=== PATIENT | female | born 1945 | race Caucasian/White ===

== ENCOUNTER 2018-07-09 21:29 | Emergency (ER) | payer OTHER ==
[~2018-07-09] VITALS: Ht 160 cm; Wt 83.9 kg
[~2018-07-09 21:29] MED LIST: ADULT LOW DOSE81 MG PO; ADVAIR 250-501 EACH; ADVAIR 250-501 EACH INH; ALBUTEROL2.5 MG/3 M INH; ALLOPURINOL 30300 M2 PO; AMITRIPTYLINE H25 M2 PO; AMITRIPTYLINE H25 M3 PO; ASPIRIN81 M2 PO; BUTALB-ACETAMI1 EAC1 PO; BUTALB-APAP-CA1 EACH PO; COLACE100 MG PO; CRESTOR20 MG PO; CRESTOR40 MG PO; DUONEB 2.5-0.5 M3 ML; ESGIC PLUS; FAMOTIDINE 10 M10 MG PO; FENOFIBRATE160 MG PO; FENTANYL PA25 MCG/HR TP; FIORINAL 50-321 EACH PO; GLUCOPHAGE1000 MG PO; GLUCOPHAGE500 MG PO; GLUCOTROL5 MG PO; HAIR SKIN NAIL1 EACH PO; HAIR, SKIN & N1 EAC1 PO; IMDUR 60 MG TAB60 M1 PO; IMDUR120 MG PO; INDOMETHACIN 5050 M1 PO; K-DUR 20 MEQ T20 MEQ PO; LASIX 40 MG TAB40 M1 PO; LEVOTHYROXINE0.05 MG PO; LISINOPRIL10 MG PO; LISINOPRIL5 MG PO; LOPRESSOR25 PO; LOPRESSOR50 PO; LORTAB 5-500 T1 EAC1 PO; METAXALONE800 MG PO; METFORMIN HCL500 MG PO; MULTIVITAMINS PO; NAPROSYN500 MG PO; NITROSTAT0.4 MG SUBLING; OCULAR NUTRITION PO; OMEPRAZOLE20 M2 PO; PEPCID20 MG PO; PERCOCET PO; PLAVIX 75 MG TA75 MG PO; POTASSIUM20 PO; PROAIR HFA8.5 GM INH; RANEXA500 MG PO; ROBAXIN 750 MG750 M1 PO; ROBAXIN500 MG PO; ROXICET 5-3251 EACH PO; SPIRIVA INH; TIROSINT75 MCG PO; TOPROL XL25 MG PO; TOPROL XL50 MG PO; VENTOLIN HFA 1818 GM INH; VENTOLIN17 GM; VICODIN 5-5001 EACH PO; VITAMIN B-121000 MCG PO; VITAMIN D-32000 UNIT PO; VITAMIN D1000 UNI1 PO; [UNRECOGNIZED DRUG - OTHER] PO
[2018-07-09 22:32] LABS: ABSOLUTE BASOPHILS 0.1 thou/uL (0.0-0.2); ABSOLUTE EOSINOPHILS 0.2 thou/uL (0.0-0.7); ABSOLUTE LYMPHOCYTES 1.6 thou/uL (0.8-5.3); ABSOLUTE MONOCYTES 0.6 thou/uL (0.0-1.2); ABSOLUTE NEUTROPHILS 3.5 thou/uL (1.6-8.1); BASOPHILS 1.3 %; EOSINOPHILS 3.2 %; HEMATOCRIT 30.9 % (37.0-47.0); HEMOGLOBIN 9.9 gm/dL (12.0-15.0); LYMPHOCYTES 26.5 %; MCH 27.9 pg (26.0-34.0); MONOCYTES 9.3 %; MPV 9.8 fl. (7.2-11.1); NUCLEATED RBCS 0 /100WBC; PLATELET COUNT* 188 thou/uL (150-400); POLYS 59.7 %; RBC 3.55 mil/uL (4.20-5.00); RDW-CV 18.4 % (10.5-14.5); WBC 5.9 thou/uL (4.0-11.0)
[2018-07-09 22:36] LABS: BE -1.7 mmol/L (-2 to +3); PCO2 33.1 mmHg (35.0-45.0); PO2 92.5 mmHg (75.0-100.0); pH 7.438 (7.340-7.450)
[2018-07-09] MEDS ORDERED: FLEXERIL (22:39)
[2018-07-09] MEDS ORDERED: LOPRESSOR25 (22:40)
[2018-07-09] MEDS ORDERED: NORCO 5-325 TA1 EACH (22:49)
[2018-07-09 22:52] LABS: APTT 23.7 Seconds (25.0-31.3); PROTIME 10.3 Seconds (9.20-11.50)
[2018-07-09 22:54] LABS: ALBUMIN 3.4 g/dL (3.4-5.0); ALKALINE PHOSPHATASE 49 U/L (46-116); ANION GAP 9 mmol/L (7-16); BUN 32 mg/dL (7-18); CALCIUM 9.4 mg/dL (8.5-10.1); CHLORIDE 103 mmol/L (98-107); CO2 28 mmol/L (21-32); CREATININE 2.3 mg/dL (0.6-1.3); GLUCOSE 186 mg/dL (70-99); POTASSIUM 3.9 mmol/L (3.5-5.1); SGOT 16 U/L (15-37); SGPT 17 U/L (30-65); SODIUM 140 mmol/L (136-145); TOTAL BILIRUBIN 0.2 mg/dL (<0.1-1.0); TOTAL PROTEIN 6.9 g/dL (6.4-8.2); TROPONIN-I LEVEL <0.06 ng/mL (<0.06)
[2018-07-10 00:06] LABS: URINE BILIRUBIN NEGATIVE (Negative); URINE BLOOD NEGATIVE (Negative); URINE CLARITY CLEAR; URINE COLOR YELLOW; URINE GLUCOSE-RANDOM NEGATIVE (Negative); URINE KETONES NEGATIVE (Negative); URINE LEUKOCYTES-REFLEX 1+ (Negative); URINE NITRITE-REFLEX NEGATIVE (Negative); URINE PROTEIN NEGATIVE (Negative); URINE SPECIFIC GRAVITY 1.015 (1.005-1.030); URINE UROBILINOGEN 0.2 E.U./dl (0.2-1.0)
[2018-07-10 00:24] LABS: CASTS None Seen /LPF (None Seen); CRYSTALS None Seen /LPF (None Seen); MUCUS 0-3 Light strn/LPF (None Seen); SQUAMOUS 0-3 Few /LPF (0-3); URINE RBC 0-2 Rare /HPF (0-2); URINE WBC-REFLEX 6-15 Few /HPF (0-5); WBC CLUMPS Few (None Seen)
[2018-07-10 03:29] LABS: CALCIUM 8.3 mg/dL (8.5-10.1); CREATININE 2.1 mg/dL (0.6-1.3); POTASSIUM 3.8 mmol/L (3.5-5.1)
[2018-07-10] MEDS ORDERED: ZOFRAN ODT4 MG PO (03:38)
[2018-07-10] MEDS ORDERED: CIPROFLOXACIN500 M1 PO (03:38)
[2018-07-10 03:56] VITALS: BP 143/50
--- NOTE | 2018-07-10 15:07 | EKG ---
[place] [address] ELECTROCARDIOGRAM REPORT Name: SHAGGY REINOSO Room: [facility]#: [id number] Admission: 07/09/18 Attend Phys: Discharge: 07/10/18 Date of : 43 Report #: [id number] THIS REPORT FOR: //name// [facility] ED Test Date: 2018-07-09 Test Time: 22:15:24 Pat Name: SHAGGY REINOSO Department: Room: Gender: F Seo Analyst: Criss MURRELL : 1945 Requested By: Regina Arriola Order Number: [id number] MD: Lucas Erwin Measurements Intervals [place] Rate: 71 P: 3 MS: 227 QRS: 50 QRSD: 108 T: 240 QT: 389 QTc: 423 Interpretive Statements Junctional rhythm Nonspecific repol abnormality, diffuse leads Compared to ECG 04/13/2015 16:34:20 Atrial premature complex(es) no longer present Right-axis deviation no longer present Q waves no longer present Electronically Signed On 07-10-2018 15:07:18 CDT by Lucas Erwin [email or web address] <ELECTRONICALLY SIGNED> By: Lucas Erwin MD, FACC 07/10/18 1507 2215 2215 Lucas Erwin MD, [facility] /EPI
== END 2018-07-10 03:56 | disposition home or self-care (01) ==
LOC: M.ERS 21:29
PROVIDERS: Personal Emergency Response Attendant
DX: N39.0 Urinary tract infection, site not specified (principal); R11.0 Nausea; J44.9 Chronic obstructive pulmonary disease, unspecified; K21.9 Gastro-esophageal reflux disease without esophagitis; E11.9 Type 2 diabetes mellitus without complications; Z95.5 Presence of coronary angioplasty implant and graft; Z86.2 Personal history of diseases of the blood and blood-forming organs and certain disorders involving the immune mechanism; Z91.041 Radiographic dye allergy status; Z88.0 Allergy status to penicillin; Z88.7 Allergy status to serum and vaccine; Z95.1 Presence of aortocoronary bypass graft; Z90.710 Acquired absence of both cervix and uterus; Z96.659 Presence of unspecified artificial knee joint; Z88.8 Allergy status to other drugs, medicaments and biological substances

== ENCOUNTER → 2018-11-29 | Outpatient (CLI) | payer OTHER ==
[~2018-11-29] MED LIST changes: +CIPROFLOXACIN500 M1 PO; +FLEXERIL; +LOPRESSOR25; +NORCO 5-325 TA1 EACH; +ZOFRAN ODT4 MG PO
--- NOTE | 2018-11-29 13:22 | 2DMMODE ---
[place] [address] 2 D/M-MODE ECHOCARDIOGRAM Name: SHAGGY REINOSO Room: [facility]#: [id number] Admission: 11/29/18 Attend Phys: Gabi Keating, Discharge: Date of : 43 Date of Service: 11/29/18 1322 Report #: [id number] THIS REPORT FOR: //name// APPROVED REPORT Study performed: 11/29/2018 08:20:15 EXAM: Comprehensive 2D, Doppler, and color-flow Echocardiogram Patient Location: Out-Patient BSA: 1.88 HR: 70 bpm BP: 126/68 mmHg Other Information Study Quality: Good Indications Cardiomyopathy 2D Dimensions IVSd: 12.07 (7-11mm) LVOT Diam: 20.73 (18-24mm) LVDd: 49.78 mm PWd: 8.59 (7-11mm) Ascending Ao: 30.99 (22-36mm) LVDs: 35.71 (25-40mm) Aortic Root: 25.65 mm Volumes Left Atrial Volume (Systole) LA ESV Index: 17.70 mL/m2 Aortic Valve AoV Peak Hever.: 1.36 m/s AO Peak Gr.: 7.36 mmHg LVOT Max P.70 mmHg AO Mean Gr.: 3.82 mmHg LVOT Mean P.64 mmHg LVOT Max V: 0.96 m/s AO V2 VTI: 26.45 cm LVOT Mean V: 0.58 m/s SEFERINO (VTI): 2.50 cm2 LVOT V1 VTI: 19.58 cm Mitral Valve E/A Ratio: 0.58 MV Decel. Time: 321.15 ms MV E Max Hever.: 0.47 m/s MV PHT: 93.13 ms MVA (PHT): 2.36 [place] [address] 2 D/M-MODE ECHOCARDIOGRAM Name: SHAGGY REINOSO Room: [facility]#: [id number] Admission: 11/29/18 Attend Phys: Gabi Keating, Discharge: Date of : 43 Date of Service: 11/29/18 1322 Report #: [id number] TDI E/Lateral E': 6.71 E/Medial E': 5.88 Medial E' Hever.: 0.08 m/s Lateral E' Hever.: 0.07 m/s Pulmonary Valve PV Peak Hever.: 1.26 m/s PV Peak Gr.: 6.34 mmHg Tricuspid Valve RAP Estimate: 5.00 mmHg TR Peak Gr.: 20.90 mmHg RVSP: 25.90 mmHg PA Pressure: 25.90 mmHg Left Ventricle The left ventricle is normal size. There is normal LV segmental wall motion. There is normal left ventricular wall thickness. Left ventricular systolic function is normal. LVEF is 50-55%. Grade I - abnormal relaxation pattern. Right Ventricle The right ventricle is normal size. The right ventricular systolic function is normal. Atria The left atrium size is normal. The right atrium size is normal. Aortic Valve The aortic valve is normal in structure. No aortic regurgitation is present. There is no aortic valvular stenosis. Mitral Valve The mitral valve is normal in structure. There is no mitral valve regurgitation noted. No evidence of mitral valve stenosis. Tricuspid Valve The tricuspid valve is normal in structure. There is no tricuspid valve regurgitation noted. Pulmonic Valve The pulmonary valve is normal in structure. Mild pulmonic regurgitation. Great Vessels The aortic root is normal in size. IVC [place] [address] 2 D/M-MODE ECHOCARDIOGRAM Name: SHAGGY REINOSO Room: [facility]#: [id number] Admission: 11/29/18 Attend Phys: Gabi Keating, Discharge: Date of : 43 Date of Service: 11/29/18 1322 Report #: [id number] collapses >50% with inspiration. Pericardium There is no pericardial effusion. <Conclusion> The left ventricle is normal size. There is normal left ventricular wall thickness. Left ventricular systolic function is normal. LVEF is 50-55%. Grade I - abnormal relaxation pattern. Mild pulmonic regurgitation. IVC is normal in size and collapses >50% with inspiration. <ELECTRONICALLY SIGNED> By: Lucas Erwin MD, FACC 11/29/18 132 21 21 Lucas Erwin MD, FACC /INF
== END ==
LOC: M.CRD 08:00
DX: I37.1 Nonrheumatic pulmonary valve insufficiency (principal); I25.118 Atherosclerotic heart disease of native coronary artery with other forms of angina pectoris; I25.5 Ischemic cardiomyopathy; Z88.0 Allergy status to penicillin; Z88.8 Allergy status to other drugs, medicaments and biological substances; Z88.7 Allergy status to serum and vaccine

== ENCOUNTER 2019-03-28 00:28 | Inpatient (IN) | payer OTHER ==
[~2019-03-28] VITALS: Ht 160 cm; Wt 89.7 kg
[2019-03-28] VITALS (7 sets, daily range): BP systolic 106–141; BP diastolic 56–74
[~2019-03-28 00:28] MED LIST changes: -FLEXERIL; +FLEXERIL PO; +HYDROCODON-ACE1 EAC7 PO; -NORCO 5-325 TA1 EACH
[2019-03-28 03:09] LABS: HEMATOCRIT 28.6 % (37.0-47.0); HEMOGLOBIN 9.5 gm/dL (12.0-15.0); MCH 30.6 pg (26.0-34.0); MCHC 33.3 g/dL (28.0-37.0); MPV 9.2 fl. (7.2-11.1); RBC 3.11 mil/uL (4.20-5.00); RDW-CV 16.7 % (10.5-14.5); WBC 7.4 thou/uL (4.0-11.0)
[2019-03-28 03:23] LABS: CALCIUM 8.5 mg/dL (8.5-10.1); CREATININE 2.1 mg/dL (0.6-1.3); POTASSIUM 3.9 mmol/L (3.5-5.1)
[2019-03-28 03:26] LABS: PROTIME 10.4 Seconds (9.20-11.50)
[2019-03-28 03:27] LABS: ALBUMIN 3.1 g/dL (3.4-5.0); MAGNESIUM 2.1 mg/dL (1.8-2.4); TOTAL BILIRUBIN 0.1 mg/dL (<0.1-1.0); TOTAL PROTEIN 6.2 g/dL (6.4-8.2)
--- NOTE | 2019-03-28 04:44 | NUR ---
PT ARRIVED TO FLOOR AT 0115 DIRECT ADMIT FOR CHEST PAIN. ASSESSMENTS COMPLETED AT BEDSIDE WITH PT AND DAUGHTER. NO PAIN NOTED AT THIS TIME. MAINTAINING O2 SATS ON 2L NC. CURRENTLY ASLEEP IN BED DAUGHTER AT BEDSIDE. BED ALRAM ON AND CALL LIGHT WITHIN REACH.
[2019-03-28 05:52] LABS: CHOLESTEROL 151 mg/dL (<200); HDL CHOLESTEROL 34 mg/dL (>40); LDL CHOLESTEROL 51 mg/dL (<100); TC:HDL 4.4 Ratio (Not establshd); TRIGLYCERIDE 333 mg/dL (<150); VLDL 67 mg/dL (<40)
[2019-03-28 05:54] LABS: SERUM ASSESSMENT Moderate Lipemia
--- NOTE | 2019-03-28 09:00 | NUR ---
INITAL ASSESSMENT COMPLETED. VSS. TRACING SR ON MONITOR. REFER TO COMPUTER CHARTING FOR FURTHER DETAILS. NO NEW CONCERNS AT THIS TIME. HOURLY ROUNDING AND FALL PRECAUTIONS IN PLACE FOR PT SAFETY. CLWR.
--- NOTE | 2019-03-28 09:56 | EKG ---
[place] [address] ELECTROCARDIOGRAM REPORT Name: SHAGGY REINOSO Room: [address] ADM IN M.R.#: [id number] Admission: 03/28/19 Attend Phys: Pamela Rowell Discharge: Date of : 43 Report #: [id number] THIS REPORT FOR: //name// [facility] Test Date: 2019-03-28 Test Time: 01:22:54 Pat Name: SHAGGY REINOSO Department: Room: [address] Gender: F Health Information Technician: [id number] : 1945 Requested By: Pamela Pascual Order Number: [id number] Reading MD: Jacobo Tom Measurements Intervals [place] Rate: 76 P: 218 ND: 346 QRS: 74 QRSD: 114 T: -88 QT: 400 QTc: 450 Interpretive Statements Sinus or ectopic atrial rhythm Prolonged ND interval Borderline intraventricular conduction delay Repol abnrm, severe global ischemia (LM/MVD) Compared to ECG 07/09/2018 22:15:24 First degree AV block now present Possible ischemia now present Electronically Signed On 03-28-2019 9:56:23 VOICER by Jacobo Tom [email or web address] <ELECTRONICALLY SIGNED> By: Jacobo Tom MD, FACC 03/28/19 0956 1 0122 Jacobo Tom MD, FAC /EPI
--- NOTE | 2019-03-28 13:32 | 2DMMODE ---
[place] [address] 2 D/M-MODE ECHOCARDIOGRAM Name: SHAGGY REINOSO Room: [address] ADM IN [facility]#: [id number] Admission: 03/28/19 Attend Phys: Pamela welch Sa Discharge: Date of : 43 Date of Service: 03/28/19 1331 Report #: [id number] THIS REPORT FOR: //name// APPROVED REPORT Study performed: 03/28/2019 11:30:04 EXAM: Comprehensive 2D, Doppler, and color-flow Echocardiogram Patient Location: In-Patient Room #: [facility] Status: routine BSA: 1.89 HR: 67 bpm BP: 138/56 mmHg Rhythm: NSR Other Information Study Quality: Good Indications Acute VT CAD Chest Pain 2D Dimensions IVSd: 13.58 (7-11mm) LVOT Diam: 20.53 (18-24mm) LVDd: 56.05 mm PWd: 13.60 (7-11mm) Ascending Ao: 34.77 (22-36mm) LVDs: 37.05 (25-40mm) Aortic Root: 35.93 mm Volumes Left Atrial Volume (Systole) LA ESV Index: 34.90 mL/m2 Aortic Valve AoV Peak Hever.: 1.33 m/s AO Peak Gr.: 7.10 mmHg LVOT Max P.52 mmHg AO Mean Gr.: 3.74 mmHg LVOT Mean P.13 mmHg LVOT Max V: 1.06 m/s AO V2 VTI: 28.00 cm LVOT Mean V: 0.66 m/s SEFERINO (VTI): 2.76 cm2 LVOT V1 VTI: 23.38 cm Mitral Valve E/A Ratio: 0.76 [place] [address] 2 D/M-MODE ECHOCARDIOGRAM Name: SHAGGY REINOSO Room: [address] IN M.R.#: [id number] Admission: 03/28/19 Attend Phys: Pamela welch Sa Discharge: Date of : 43 Date of Service: 03/28/19 1331 Report #: [id number] MV Decel. Time: 198.91 ms MV E Max Hever.: 0.76 m/s MV PHT: 57.68 ms MVA (PHT): 3.81 cm2 TDI E/Lateral E': 6.91 E/Medial E': 7.60 Medial E' Hever.: 0.10 m/s Lateral E' Hever.: 0.11 m/s Pulmonary Valve PV Peak Hever.: 1.45 m/s PV Peak Gr.: 8.46 mmHg Left Ventricle The left ventricle is normal size. There is normal LV segmental wall motion. Mild concentric left ventricular hypertrophy. Left ventricular systolic function is normal. The left ventricular ejection fraction is within the normal range. LVEF is 55-60%. Grade I - abnormal relaxation pattern. Right Ventricle The right ventricle is normal size. The right ventricular systolic function is normal. Atria Left atrium is mildly dilated. The right atrium size is normal. Aortic Valve Mild aortic valve sclerosis. Trace aortic regurgitation. There is no aortic valvular stenosis. Mitral Valve The mitral valve is normal in structure. Trace mitral regurgitation. No evidence of mitral valve stenosis. Tricuspid Valve The tricuspid valve is normal in structure. Trace tricuspid regurgitation. Pulmonic Valve The pulmonary valve is normal in structure. Mild pulmonic regurgitation. Great Vessels The aortic root is normal in size. IVC [place] [address] 2 D/M-MODE ECHOCARDIOGRAM Name: SHAGGY REINOSO Room: [address]#: [id number] Admission: 03/28/19 Attend Phys: Pamela welch Sa Discharge: Date of : 43 Date of Service: 03/28/19 1331 Report #: [id number] collapses >50% with inspiration. Pericardium There is no pericardial effusion. <Conclusion> LVEF is 55-60%. Mild concentric left ventricular hypertrophy. Left atrium is mildly dilated. Mild aortic valve sclerosis. <ELECTRONICALLY SIGNED> By: Jacobo Tom MD, FAC 03/28/191330 30 30 Jacobo Tom MD, FAC /INF
--- NOTE | 2019-03-28 15:17 | NUR ---
Pt is A&O. Resides at home alone. Independent. Family provides transportation. Dtr lives across the street and is available to assist as needed. Pt has a cane, walker wc and neb at home. Hx of HH in 2013 post knee replacement surgery. No hx of SNF. Pt states that she is scheduled to have a cath tomorrow morning. Pt's goal is to return home at ri. No needs anticipated.
[2019-03-28 17:07] LABS: AMP/METHAMP Negative (Negative); BARBITURATES Negative (Negative); BENZODIAZEPINES Negative (Negative); COCAINE Negative (Negative); METHADONE Negative (Negative); OPIATES POSITIVE (Negative); PCP Negative (Negative); THC Negative (Negative)
[2019-03-29] VITALS (15 sets, daily range): BP systolic 122–151; BP diastolic 48–69
--- NOTE | 2019-03-29 05:23 | NUR ---
ASSUMED PT CARE AT APPROX 1930. PT IS AWAKE AND ORIENTED X4. VSS ON ROOM AIR. HEAD INSULATION BOARD SAW OPERATOR IN PLACE TRACING SR 1D AVB. PT DENIES CHEST PAIN/DISCOMFORT. ASSESSMENT DONE AND CHARTED. PT IS ADVISED TO HAVE NOTHING PER O[place] AFTER MIDNIGHT FOR POSS. PCI IN AM. HEPARIN DRIP PER PROTOCOL. HIGH FALL PRECAUTIONS IN PLACE. CALL LIGHT WITHIN REACH. HOURLY ROUNDING DONE FOR PT SAFETY.
[2019-03-29 07:36] LABS: HEMATOCRIT 26.6 % (37.0-47.0); MCH 31.3 pg (26.0-34.0); MCHC 33.8 g/dL (28.0-37.0); MCV 92.6 fL (80.0-100.0); MPV 9.8 fl. (7.2-11.1); RBC 2.88 mil/uL (4.20-5.00); RDW-CV 16.5 % (10.5-14.5); WBC 7.6 thou/uL (4.0-11.0)
[2019-03-29 07:45] LABS: CALCIUM 8.2 mg/dL (8.5-10.1); CREATININE 1.8 mg/dL (0.6-1.3); MAGNESIUM 2.1 mg/dL (1.8-2.4); POTASSIUM 4.4 mmol/L (3.5-5.1)
--- NOTE | 2019-03-29 11:54 | CARD ---
[address] [address] CARDIAC CATH REPORT Name: AMY REINOSOE GAVINO Room: [address] IN ..#: [id number] Admission: 03/28/19 Attend Phys: Pamela welch [place] Discharge: Date of : 43 Report #: [id number] THIS REPORT FOR: //name// APPROVED REPORT Study performed: 03/29/2019 08:13:59 Patient Details Patient Status: In-Patient Room #: The patient is a 73 year-old female Event Personnel Jacobo Tom Cargo Broker, Chika Reece RN Administrative Professional, Olena Meza RN Administrative Professional, Maru Noguera RTR Scrub, Hoang Flynn RTR Scrub, Praveena Ly RTR Monitor Procedures Performed Art Access - R femoral artery, Left Heart Cath Coronaries, Bypass Grafts LHCCORCABG, BMS Place w/wo Plasty Single DIAG BMS SINGLE, Supravalvular Aortography, Hemostasis w/ Angioseal Indication Unstable angina Risk Factors Hypercholesterolemia, Hypertension, Diabetes Previous Procedures/Diagnoses Previous CABGPrevious PCI Admission/Lab Medications/Medications given during procedure Heparin Unfract., Solumedrol IV 125 mg, Benadryl IV 50 mg, Heparin IV 4000 units total Procedure Narrative The patient was brought electively to the Cardiac Catheterization Laboratory and was prepped and draped in a sterile manner. The right femoral groin area was infiltrated with 2% Lidocaine subcutaneous anesthesia. A 6fr Ultimum Sheath sheath was inserted into the right femoral artery. Coronary angiography was performed using coronary diagnostic catheters. The right coronary system was accessed and visualized with a 6F JR4 catheter. The left coronary system was accessed and visualized with a 6F JL4 catheter. The left ventricle was accessed and visualized with a 6F JR4 [place] [address] CARDIAC CATH REPORT Name: SHAGGY REINOSO Room: [address] IN ..#: [id number] Admission: 03/28/19 Attend Phys: Pamela Rowell Discharge: Date of : 43 Report #: [id number] ventricular/Aortic Valve gradient assessed via catheter pullback. An aortogram of the ascending aorta was performed. Closure device was deployed with a 6 Fr Angioseal STS 6Fr. The patient tolerated the procedure well and there were no complications associated with the procedure. There was no hematoma. Saphenous vein grafts were visualized with a 6F JR4 catheter. JOSUE was visualized with a 6F IM catheter. A 6F Pigtail catheter was used to perform aortography. Intraoperative Conscious Sedation Sedation start time: 09:23 Case end Time: 10:38 Versed 2 mg Fluoro Time: 11.9 minutes Dose: DAP [id number] cGycm2 2013 mGy Contrast Type and Amount: Visipaque 210 ml Coronary Angiography The patient's coronary anatomy is co- dominant. [place] Artery Percent Stenosis Grafts (Complete if Previous CABG=Yes: Percent Stenosis) Patent JOSUE graft to the lad that had a mid 60% stenosis. SVG to the circumflex had 100% occlusion of stents. SVG to the RCA had 100% occlusion of stents Diagnostic Cath Left Main 0% stenosis LAD 100% proximal occulsion Circumflex distal circumflex beyond the 2nd marginal branch was occluded and fills by collaterals OM1 80% stenosis OM2 stentw without restenosis Right Coronary 100% proximal occluded. Fills by collaterals from the JOSUE graft to the lad Left Ventriculography Left Ventriculography was not performed. Aortic root injection showed no patent SVG grafte and only trace regurgitation Hemodynamics The aortic pressure is 140/54 mmHg with a mean of 87 mmHg. The left ventricular pressure is 136/10 mmHg with a mean of mmHg. The left ventricular end diastolic pressure is 19 mmHg. [place] [address] CARDIAC CATH REPORT Name: SHAGGY REINOSO Room: [address] IN [facility]#: [id number] Admission: 03/28/19 Attend Phys: Pamela Rowell Discharge: Date of : 43 Report #: [id number] across the aortic valve upon pullback. Pullback from the left ventricle to the aorta revealed no gradient across the aortic valve. PCI Technique Lesion Anticoagulation was achieved with Heparin. Patient was preloaded with Plavix. Percutaneous coronary intervention was performed on the first obtuse marginal branch segment. The lesion stenosis prior to intervention was 80% with LEONOR 3 flow. A 6F XB LAD 3.5 Guide Catheter was used to engage the lm ostium. A BMW 190cm Interventional Guidewire was used to cross the lesion. BALLOON DILATION A Balloon catheter NC Trek RX 2.0 X 12 was inserted and inflated up to 14.00atm for 18seconds. Repeat angiography revealed the following post-dilatation results: 50% stenosis. Additional Inflation: 16.00atm for 11seconds. Additional Inflation: 18.00atm for 20seconds. STENT DEPLOYMENT A bare metal stent CATH MINI VISION RX 2.5 X 15 was inserted and inflated up to 6.00atm for 9seconds. Repeat angiography revealed the following post-stent deployment results: 30% stenosis. Additional Inflation: 10.00atm for 17seconds. Additional Inflation: 14.00atm for 17seconds. Final angiography reveals 30 % stenosis with LEONOR 3 flow. COMMENTS Stents unable to cross OM: 2.25/13 Orsiro COLUMBA, 2.5/8 Mini Vision BMS, 2.0/8 [place] COLUMBA. Able to place BMS after dilated with a 2.5 mm balloon. Conclusion 1. Patent JOSUE to the lad 2. Patent stents in the second marginal branch 3. chronic occlusion to the stented SVG's to the circumflex and RCA 4. chronic occlusion of the rca 5. 80% stenosis of the first marginal branch 6. successful placement of a bare metal stent to the first marginal branch Recommendations Cardiac Rehabilitation Referral [facility] [address] [place] [address] CARDIAC CATH REPORT Name: SHAGGY REINOSO Room: [address] IN M.R.#: [id number] Admission: 03/28/19 Attend Phys: Pamela Rowell Discharge: Date of : 43 Report #: [id number] Medications Administered Clopidogrel <ELECTRONICALLY SIGNED> By: Jacobo Tom MD, FACC 03/29/19 1153 1153 1153Dhilda Tom MD, FACC /INF
--- NOTE | 2019-03-29 14:25 | H ---
[place] [address] HISTORY AND PHYSICAL Name: SHAGGY REINOSO Room: [address] ADM IN M.R.#: [id number] Admission: 03/28/19 Attend Phys: Pamela Rowell Discharge: Date of : 43 Report #: [id number] THIS REPORT FOR: //name// CC: AALIYAH physician/PCP Pamela Pascual DATE OF SERVICE: 03/28/2019 NEPHROLOGY CONSULTATION LOCATION: The patient is at [facility] room #207. I am asked to see this 73-year-old female at the request of Dr. Brennan for chronic kidney disease. CHIEF COMPLAINT: The patient was a direct admit from the Emergency Department at [facility] where she presented last night with chest pain rated at 5/10 in severity. She denies shortness of breath now, but on her presentation last evening did have some accompanying shortness of breath. She had an EKG that demonstrated ST-segment depression in the inferior and anterolateral leads suggestive of widespread ischemia. She was given some nitroglycerin paste and had improvement of her symptoms and was transferred to our facility. She had minimally elevated troponin and her repeat EKG did show some improvement in the ST-segment changes. PAST MEDICAL HISTORY: The patient's past medical history is positive for coronary artery disease. She had a coronary artery bypass grafting surgery x 3 in 1992. She has had several subsequent PCIs since that time. Her electric motor repairman is Dr. Tom. Her recent heart catheterization was in 2014, at which time zuni vessels were occluded. She had a patent JOSUE to the LAD. Attempts were made to recanalize a chronic total occlusion of the saphenous vein graft to the RCA, but this was unsuccessful. Medical management has been pursued. She had collateral flow from her LAD to her RCA at that time. She has required maintenance on isosorbide, beta blockers, Ranexa and Plavix. She has had unstable angina throughout these few years, but does get some relief with sublingual nitroglycerin. Echocardiogram this past summer demonstrated a preserved LV function. Her other past medical history is positive for hypertension, COPD, chronic diastolic congestive heart failure, CAD as noted above with a history of NSTEMI, obesity, peptic ulcer disease with a history of GI bleeding, type 2 DM, and osteoarthritis. She is also anemic. PAST SURGICAL HISTORY: Her positive surgeries have included the CABG in 1992, hysterectomy, tonsillectomy, prior carpal tunnel syndrome surgery, knee replacement, hernia repair in 2011 and 2013, cholecystectomy, [place] [address] HISTORY AND PHYSICAL Name: SHAGGY REINOSO Room: [address] IN M.R.#: [id number] Admission: 03/28/19 Attend Phys: Pamela Rowell Discharge: Date of : 43 Report #: [id number] repair, right foot surgery, stent placement in 2013, GERD, neck surgery, and laser surgery to both eyes for ulcerative disease. FAMILY HISTORY: Positive for hypertension and coronary artery disease. SOCIAL HISTORY: She is a prior tobacco user, but has not smoked for years. She has no alcohol or recreational drug history. ALLERGIES: Noted to be present to CONTRAST DYE, PENICILLIN, SIMVASTATIN and TETANUS and DIPHTHERIA TOXOID. MEDICATIONS: At home have included albuterol sulfate 2.5 mg inhalation every 6 hours, isosorbide mononitrate 60 mg 4 of these daily, metoprolol succinate 50 mg one-half tablet at bedtime, cyclobenzaprine 10 mg daily, metoprolol tartrate, I do not know that dose. Albuterol sulfate 2 puffs inhalation for shortness of air, metformin 500 mg at 1200 hours, Fioricet one tablet every 4 hours p.r.n. headache, clopidogrel 75 mg daily, cholecalciferol 1000 units as well as 2000 units p.o. daily, furosemide 40 mg b.i.d., levothyroxine 0.05 mg daily, nitroglycerin 0.4 mg as directed p.r.n. and potassium chloride 20 mEq daily. As above, she is taking p.r.n. [place] 5/325 every 6 hours p.r.n. REVIEW OF SYSTEMS: HEENT: No recent changes in vision or hearing. CARDIAC: Positive for chest pain radiating to her arm into her mid chest and into her jaw. PULMONARY: Positive shortness of air, accompanying the pain at first, but now she is breathing easily. She does have COPD. GASTROINTESTINAL: No nausea, vomiting, diarrhea, or constipation. GENITOURINARY: No urgency, frequency, or dysuria. Positive for CKD. She follows with Dr. Kramer in [place], [place]. HEMATOLOGIC AND LYMPHATIC: No malignancy history. She does have anemia. MUSCULOSKELETAL: Weakness. PSYCHIATRIC: Negative. NEUROLOGIC: No TIA, CVA, Parkinson's disease, seizure disorder. Other 14-point review of systems is as above. PHYSICAL EXAMINATION: GENERAL: She is awake, alert, not having much pain at present and occasional sensation of some chest pressure. VITAL SIGNS: Show that she has a temperature of 36.1, heart rate 65, respirations 20, and blood pressure 125/59. GENERAL: She is awake, alert, daughter is at the bedside. The patient is not in any acute distress. HEENT: Atraumatic, normocephalic. Pupils react to light. NECK: Supple, no increased jugular venous pressure. [place]: [place] [address] HISTORY AND PHYSICAL Name: SHAGGY REINOSO Room: [address] IN M.R.#: [id number] Admission: 03/28/19 Attend Phys: Pamela Rowell Discharge: Date of : 43 Report #: [id number] HEART: S1, S2. No rubs. ABDOMEN: Soft, nontender, positive bowel sounds. EXTREMITIES: Show 2+ femoral pulses distally diminished, but extremities are perfused. Negative Homans. Lower extremities are perfused. Femoral pulses are 1+ to 2+. NEUROLOGIC: Cranial nerves, sensory and motor show no evidence of any acute neurologic changes or focal findings. LABORATORY DATA: Shows a white count of 7400, hemoglobin 9.5, hematocrit 28.6, and platelets 185,000. PT 10.4, INR 1, and PTT 25.4. Chemistry shows sodium of 144, potassium 3.9, chloride 106, CO2 of 25, BUN and creatinine of 30 and 2.1, glucose 207, calcium 8.5, magnesium 2.1, and total bilirubin 0.1. AST, ALT, alkaline phosphatase were all normal. IMPRESSION: 1. Non-ST segment elevation myocardial infarction with known coronary artery disease. 2. Chronic kidney disease, stage 4. 3. Hypertension. 4. Chronic obstructive pulmonary disease. 5. Chronic diastolic congestive heart failure. 6. Obesity. 7. Peptic ulcer disease with a history of gastrointestinal bleed. 8. Type 2 diabetes mellitus. 9. Obstructive sleep apnea. 10. Osteoarthritis. 11. Anemia of chronic kidney disease. PLAN: The patient and I discussed the fact that sometimes treatment aimed at a patient's cardiac treatment, may cause some worsening in chronic kidney disease. She is aware of this and states she has been through this before. It is highly likely that treatment of her NSTEMI could result in this. She will need to avoid other nephrotoxins and we will monitor labs closely during this admission. Further recommendations to follow. We will check serum protein electrophoresis and urine for eosinophils at this time. <ELECTRONICALLY SIGNED> By: Lisette Olsen MD 03/29/19 1425 1622 [id number] Olsen MD /nt
--- NOTE | 2019-03-29 15:18 | EKG ---
[place] [address] ELECTROCARDIOGRAM REPORT Name: SHAGGY REINOSO Room: [address] ADM IN M.R.#: [id number] Admission: 03/28/19 Attend Phys: Pamela Rowell Discharge: Date of : 43 Report #: [id number] THIS REPORT FOR: //name// [facility] Test Date: 2019-03-29 Test Time: 11:43:58 Pat Name: SHAGGY REINOSO Department: Room: [address] Gender: F Joiners Supervisor: RT : 1945 Requested By: Jacobo Tom Order Number: [id number] Amanda MD: Jacobo Tom Measurements Intervals [place] Rate: 61 P: 74 FL: 239 QRS: 75 QRSD: 116 T: -46 QT: 470 QTc: 474 Interpretive Statements Sinus rhythm Prolonged [place] interval Nonspecific intraventricular conduction delay Borderline repolarization abnormality Compared to ECG 03/28/2019 01:22:54 Ectopic atrial rhythm no longer present Possible ischemia no longer present Electronically Signed On 03-29-2019 15:18:41 PRINTING SALES REPRESENTATIVE by Jacobo Tom [email or web address] <ELECTRONICALLY SIGNED> By: Jacobo Tom MD, FACC 03/29/19 1518 1143 1143 Jacobo Tom MD, FAC /EPI
[2019-03-29 16:10] LABS: CALCIUM 8.3 mg/dL (8.5-10.1)
[2019-03-30] VITALS: BP 138/68
[2019-03-30 04:00] VITALS: BP 133/55
--- NOTE | 2019-03-30 04:01 | NUR ---
ASSUMED PT CARE AT 1930. PT IS AWAKE AND ORIENTED X4. VSS ON ROOM AIR. DISTRIBUTION A CLASS LINEMAN IN PLACE TRACING SR w/ 1D AVB. PT DENIES PAIN AND DISCOMFORT. POST CARDIAC CATH SITE (RIGHT GROIN) IS INTACT, w/ SMALL AMOUNT OF SEROSANGUINOS DRAINAGE, NO HEMATOMA NOTED. PT IS ABLE TO SLEEP MOST OF THE NIGHT. CALL LIGHT WITHIN REACH. HIGH FALL PRECAUTIONS IN PLACE. HOURLY ROUNDING DONE FOR PT SAFETY.
[2019-03-30 04:32] LABS: HEMATOCRIT 26.6 % (37.0-47.0); HEMOGLOBIN 8.8 gm/dL (12.0-15.0); MCH 30.7 pg (26.0-34.0); MCV 92.9 fL (80.0-100.0); MPV 9.8 fl. (7.2-11.1); RBC 2.87 mil/uL (4.20-5.00); RDW-CV 16.7 % (10.5-14.5); WBC 8.3 thou/uL (4.0-11.0)
[2019-03-30 04:41] LABS: CALCIUM 8.4 mg/dL (8.5-10.1); CREATININE 1.9 mg/dL (0.6-1.3); MAGNESIUM 2.3 mg/dL (1.8-2.4); POTASSIUM 4.6 mmol/L (3.5-5.1)
[2019-03-30 07:00] VITALS: BP 136/73
[2019-03-30 07:31] VITALS: BP 136/73
[2019-03-30] MEDS ORDERED: ASA81BEC PO (08:23)
[2019-03-30] MEDS ORDERED: LIPITOR40 MG PO (08:24)
== END 2019-03-30 11:05 | disposition home or self-care (01) | DRG 248 ==
LOC: M.2W 00:28 → M.TBA-ER 01:11 → M.2W 01:12
PROVIDERS: Internal Medicine; Internal Medicine Cardiovascular Disease; Internal Medicine Nephrology; ADMIT Family Medicine
PROC: 4A023N7 Measurement of Cardiac Sampling and Pressure, Left Heart, Percutaneous Approach (ICD-10-PCS; principal; 2019-03-29)
PROC: 02703DZ Dilation of Coronary Artery, One Artery with Intraluminal Device, Percutaneous Approach (ICD-10-PCS; 2019-03-29)
PROC: B211YZZ Fluoroscopy of Multiple Coronary Arteries using Other Contrast (ICD-10-PCS; 2019-03-29)
PROC: B213YZZ Fluoroscopy of Multiple Coronary Artery Bypass Grafts using Other Contrast (ICD-10-PCS; 2019-03-29)
PROC: B218YZZ Fluoroscopy of Left Internal Mammary Bypass Graft using Other Contrast (ICD-10-PCS; 2019-03-29)
PROC: B310YZZ Fluoroscopy of Thoracic Aorta using Other Contrast (ICD-10-PCS; 2019-03-29)
DX: I21.4 Non-ST elevation (NSTEMI) myocardial infarction (principal); I50.33 Acute on chronic diastolic (congestive) heart failure; N18.4 Chronic kidney disease, stage 4 (severe); I13.0 Hypertensive heart and chronic kidney disease with heart failure and stage 1 through stage 4 chronic kidney disease, or unspecified chronic kidney disease; J44.9 Chronic obstructive pulmonary disease, unspecified; Z96.659 Presence of unspecified artificial knee joint; K21.9 Gastro-esophageal reflux disease without esophagitis; E11.22 Type 2 diabetes mellitus with diabetic chronic kidney disease; E66.9 Obesity, unspecified; M19.90 Unspecified osteoarthritis, unspecified site; E78.5 Hyperlipidemia, unspecified; D63.1 Anemia in chronic kidney disease; I25.110 Atherosclerotic heart disease of native coronary artery with unstable angina pectoris; Z95.1 Presence of aortocoronary bypass graft; Z88.0 Allergy status to penicillin; Z88.7 Allergy status to serum and vaccine; Z88.8 Allergy status to other drugs, medicaments and biological substances; Z91.041 Radiographic dye allergy status; Z79.84 Long term (current) use of oral hypoglycemic drugs; Z79.899 Other long term (current) drug therapy; Z90.710 Acquired absence of both cervix and uterus; Z90.49 Acquired absence of other specified parts of digestive tract; Z87.891 Personal history of nicotine dependence; Z87.11 Personal history of peptic ulcer disease; Z68.35 Body mass index [BMI] 35.0-35.9, adult

== ENCOUNTER 2019-04-08 20:03 | Inpatient (IN) | payer OTHER ==
[~2019-04-08] VITALS: Ht 160 cm; Wt 89.4 kg
[~2019-04-08 20:03] MED LIST changes: +ASA81BEC PO; +LIPITOR40 MG PO
[2019-04-08 20:09] VITALS: BP 191/80
[2019-04-08 20:22] LABS: ABSOLUTE BASOPHILS 0.1 thou/uL (0.0-0.2); ABSOLUTE EOSINOPHILS 0.2 thou/uL (0.0-0.7); ABSOLUTE MONOCYTES 0.5 thou/uL (0.0-1.2); ABSOLUTE NEUTROPHILS 5.3 thou/uL (1.6-8.1); BASOPHILS 0.9 %; EOSINOPHILS 3.3 %; HEMATOCRIT 25.9 % (37.0-47.0); HEMOGLOBIN 8.5 gm/dL (12.0-15.0); LYMPHOCYTES 14.7 %; MCH 30.8 pg (26.0-34.0); MCHC 32.9 g/dL (28.0-37.0); MCV 93.7 fL (80.0-100.0); MONOCYTES 6.9 %; MPV 9.1 fl. (7.2-11.1); NUCLEATED RBCS 0 /100WBC; PLATELET COUNT* 233 thou/uL (150-400); POLYS 74.2 %; RBC 2.77 mil/uL (4.20-5.00); RDW-CV 16.6 % (10.5-14.5); WBC 7.1 thou/uL (4.0-11.0)
[2019-04-08 20:32] LABS: PROTIME 10.1 Seconds (9.20-11.50)
[2019-04-08 20:33] LABS: CALCIUM 9.3 mg/dL (8.5-10.1); CREATININE 1.9 mg/dL (0.6-1.3); POTASSIUM 4.7 mmol/L (3.5-5.1)
[2019-04-08 20:45] LABS: ALBUMIN 3.2 g/dL (3.4-5.0); TOTAL BILIRUBIN 0.2 mg/dL (<0.1-1.0); TOTAL PROTEIN 6.2 g/dL (6.4-8.2)
[2019-04-08] MEDS ORDERED: ISOSORBIDE MON120 MG PO (21:06)
[2019-04-08] MEDS ORDERED: POTASSIUM20 PO (21:07)
[2019-04-08] MEDS ORDERED: DICYCLOMINE HCL20 MG PO (21:07)
[2019-04-08] MEDS ORDERED: RANEXA1000 MG PO (21:08)
[2019-04-08] MEDS ORDERED: RANOLAZINE ER1000 MG PO (21:08)
[2019-04-08] MEDS ORDERED: B-125000 MC1 PO (21:09)
[2019-04-08] MEDS ORDERED: APPLE CIDER VI500 MG PO (21:09)
[2019-04-08 22:04] LABS: URINE BILIRUBIN NEGATIVE (Negative); URINE BLOOD NEGATIVE (Negative); URINE CLARITY CLEAR; URINE COLOR YELLOW; URINE GLUCOSE-RANDOM NEGATIVE (Negative); URINE KETONES NEGATIVE (Negative); URINE LEUKOCYTES-REFLEX 1+ (Negative); URINE PROTEIN NEGATIVE (Negative); URINE UROBILINOGEN 0.2 E.U./dl (0.2-1.0)
[2019-04-08 22:12] LABS: URINE NITRITE-REFLEX POSITIVE (Negative)
[2019-04-08 22:20] VITALS: BP 144/71
[2019-04-08 22:20] LABS: BACTERIA-REFLEX >30 Many /HPF (None Seen); SQUAMOUS 4-10 Moderate /LPF (0-3); URINE RBC None Seen /HPF (0-2); URINE WBC-REFLEX >25 Many /HPF (0-5)
[2019-04-08 22:26] LABS: CASTS None Seen /LPF (None Seen); CRYSTALS None Seen /LPF (None Seen)
[2019-04-08 22:45] VITALS: BP 147/75
[2019-04-09 02:51] VITALS: BP 144/64
[2019-04-09 04:00] VITALS: BP 140/62
[2019-04-09 07:02] VITALS: BP 135/56
--- NOTE | 2019-04-09 07:26 | NUR ---
Pt admitted to unit from ED at 2240 last night. Pt denied pain at that time, but was encouraged to call if experiencing chest pain. Pt called just before 0300 c/o chest pain, sharp and not radiating. States pain increases with deep breaths. 2 doses of NTG given. Pt reports small decrease in pain after first dose of NTG, but back to 5/10. Morphine given, and eventually she reorts pain is gone. Pt reports pain returning to L side of chest this am at 0645, and states pain also in L arm down to elbow; states pain increased with deep breaths. O2 at 2L per NC in place. NPO since MN; troponins negative X3; VSS. Will continue to monitor.
--- NOTE | 2019-04-09 08:16 | NUR ---
INITAL ASSESSMENT COMPLETETD CHARTED. VSS. PT TRACING SR WITH PAC'S ON MONITOR. PT C/O 2/10 LEFT ARM PAIN AND DESCRIBES IT PRESSURE. PT ALSO REPORTS FEELING SOA, CURRENTLY ON 2 LPM O2 WITH O2 SATS AT 98%. REFER TO CHARTING FOR FURTHER DETAIL. HOURLY ROUNDING IN PLACE FOR PT SAFETY. CLWR.
[2019-04-09 11:13] LABS: % SATURATION 17 % (20-39); IRON 49 ug/dL (50-175)
[2019-04-09 12:00] VITALS: BP 112/64
--- NOTE | 2019-04-09 12:25 | EKG ---
[place] [address] ELECTROCARDIOGRAM REPORT Name: SHAGGY REINOSO Room: [address] ADM IN .R.#: [id number] Admission: 04/08/19 Attend Phys: Dimas Turk MD Discharge: Date of : 43 Report #: [id number] THIS REPORT FOR: //name// [facility] ED Test Date: 2019-04-08 Test Time: 20:08:07 Pat Name: SHAGGY REINOSO Department: Room: [facility] Gender: F Supply Chain Technician: : 1945 Requested By: Ivis Andrews Order Number: [id number] MD: Jacobo Tom Measurements Intervals [place] Rate: 88 P: 0 CO: 214 QRS: 72 QRSD: 129 T: 255 QT: 384 QTc: 465 Interpretive Statements Sinus rhythm poor r wave progression Borderline prolonged [place] interval Nonspecific intraventricular conduction delay Nonspecific repol abnormality, diffuse leads Compared to ECG 03/29/2019 11:43:58 No significant changes Electronically Signed On 04-09-2019 12:25:24 KNIFEMAN by Jacobo Tom [email or web address] <ELECTRONICALLY SIGNED> By: Jacobo Tom MD, FACC 04/09/19 1225 07 07 Jacobo Tom MD, FAC /EPI
[2019-04-09 16:00] VITALS: BP 106/47
[2019-04-10] VITALS: BP 157/49
[2019-04-10 04:00] VITALS: BP 154/65
[2019-04-10 08:00] VITALS: BP 124/60
[2019-04-10 11:02] LABS: ABSOLUTE EOSINOPHILS 0.2 thou/uL (0.0-0.7); ABSOLUTE LYMPHOCYTES 0.9 thou/uL (0.8-5.3); ABSOLUTE MONOCYTES 0.5 thou/uL (0.0-1.2); ABSOLUTE NEUTROPHILS 4.4 thou/uL (1.6-8.1); BASOPHILS 0.6 %; EOSINOPHILS 3.5 %; HEMATOCRIT 24.7 % (37.0-47.0); HEMOGLOBIN 8.1 gm/dL (12.0-15.0); LYMPHOCYTES 14.4 %; MCH 31.1 pg (26.0-34.0); MCHC 32.9 g/dL (28.0-37.0); MCV 94.6 fL (80.0-100.0); MONOCYTES 8.1 %; MPV 8.6 fl. (7.2-11.1); NUCLEATED RBCS 0 /100WBC; PLATELET COUNT* 216 thou/uL (150-400); POLYS 73.4 %; RBC 2.61 mil/uL (4.20-5.00); RDW-CV 17.4 % (10.5-14.5)
[2019-04-10 11:18] LABS: CREATININE 2.3 mg/dL (0.6-1.3); POTASSIUM 4.7 mmol/L (3.5-5.1)
[2019-04-10 12:48] VITALS: BP 135/47
--- NOTE | 2019-04-10 15:49 | NUR ---
Pt is A&O. Known to this CM from previous hospital stay. Pt resides at home alone. Independent. Dtr resides across the street and assists as needed. Pt has a cane, walker, wc and neb at home. Hx of HH. No hx of SNF. Goal is home at dc, no needs anticipated. Per Pt, plan video swallow today and GI scope tomorrow.
[2019-04-10 16:00] VITALS: BP 174/45
--- NOTE | 2019-04-10 16:24 | CON ---
[address] [address] CONSULTATION Name: SHAGGY REINOSO Room: [address] IN M.R.#: [id number] Admission: 04/08/19 Attend Phys: Dimas Turk MD Discharge: Date of : 43 Report #: [id number] THIS REPORT FOR: //name// CC: Dimas Tidwell MD [facility] physician/PCP DATE OF SERVICE: 04/09/2019 CARDIOLOGY CONSULTATION HISTORY OF PRESENT ILLNESS: The patient is a 73-year-old single white male who I was asked to see in the hospital today after she complained of chest pain. The patient has an extensive and complicated past medical history. She had triple vessel bypass surgery at [facility] in 1992. She has had multiple stents since that time. She was actually admitted to [facility] last week with chest pain. I performed a heart catheterization from the right femoral artery. The LAD was proximally occluded. The distal circumflex was proximally occluded. The right coronary artery was proximally occluded. No ventriculogram was performed. Aortic root injection showed no patent saphenous vein grafts. The left ventricular end diastolic pressure was 20. There was a patent JOSUE graft to the LAD that had a mid 60% stenosis. The circumflex vein graft had stents that were chronically occluded. The vein graft to the right coronary artery had stents that were occluded. The first marginal branch was noted to have an 80% stenosis. The second marginal branch had a stent with no restenosis. She was then given heparin and loaded with Plavix. I performed stenting of the first marginal branch. She had a bare metal stent inflated. I was unable to place drug-eluting stents. She tolerated the procedure well. She was then discharged 10 days ago and was taken off her Imdur and Ranexa. However, she continued to have chest pain. She did undergo an echocardiogram that showed normal left ventricular function, left ventricular hypertrophy, aortic sclerosis. She states since her discharge, she continued to have occasional chest pain. She was placed back on Imdur. Yesterday, she was at home, she felt a discomfort in her chest and her left arm. She became short of breath and diaphoretic. She took 2 nitroglycerin, did seem to help. She was brought here to [facility] and admitted. She denied the pain related to food or trauma. Denied the pain being related to taking a deep breath. PAST MEDICAL HISTORY: Significant for cholecystectomy, tonsillectomy, hysterectomy, hernia repair, shoulder surgery, neck surgery, hypertension, diabetes, hyperlipidemia. MEDICATIONS: On admission included Flexeril, metoprolol, Lasix, Advair, Crestor, omeprazole, ProAir, metformin, hydrocodone, aspirin, Plavix, glipizide, allopurinol, Imdur, [place] [address] CONSULTATION Name: SHAGGY REINOSO Room: [address] IN .Elizabeth#: [id number] Admission: 04/08/19 Attend Phys: Dimas Turk MD Discharge: Date of : 43 Report #: [id number] ALLERGIES: SHE HAD AN ALLERGY TO CONTRAST DYE AND PENICILLIN. FAMILY HISTORY: Positive for heart disease. SOCIAL HISTORY: She is , lives in [place], [place]. Quit smoking in 1992. No alcohol abuse. REVIEW OF SYSTEMS: No history of stroke. She has a history of asthma. She had a previous bleeding ulcer. No liver disease, chronic kidney disease. No cancer. No psychiatric illness. PHYSICAL EXAMINATION: GENERAL: Revealed an elderly female lying in bed. She appeared in no distress. VITAL SIGNS: Blood pressure 130/60, pulse 70. She is afebrile. HEENT: She was anicteric. Conjunctivae pink. Mucous membranes moist. NECK: Veins do not appear distended. No carotid bruits. CHEST: Clear to auscultation. CARDIOVASCULAR: Regular rate and rhythm. ABDOMEN: Soft. EXTREMITIES: Had no edema. Dorsalis pedis pulse 1+ bilaterally. SKIN: Cool and dry. NEUROLOGIC: Nonfocal. RADIOLOGICAL DATA: Her ECG on admission showed a sinus rhythm, nonspecific ST and T-wave changes. Her workup in the Emergency Room last night, she had a portable chest x-ray that showed no acute abnormality. LABORATORY WORK: Sodium 142, BUN 23, creatinine 1.9, it has been as high as 2.3 in July. Glucose is 253. Troponins were all 0.06. Her cholesterol 151, triglyceride 333, HDL 34, LDL 51. Recent TSH was 2.6. Her white blood cell count was 7.1, hemoglobin is only 8.5, it has been as low as 9.5 back in 2011. IMPRESSION AND RECOMMENDATIONS: 1. Chest pain. Suspect musculoskeletal. No evidence of acute coronary syndrome. 2. Recent stent. The patient is on aspirin and Plavix. 3. Chronic renal insufficiency. 4. Hypertension. The patient is on a beta melissa. 5. Chronic renal insufficiency. I would not recommend an MELISSA inhibitor nor ARB. 6. Anemia. No history of bleeding. <ELECTRONICALLY SIGNED> By: Jacobo Tom MD, [facility] 04/10/19 1624 0852 [id number] Tom MD, LIBIA /nt
--- NOTE | 2019-04-10 18:30 | NUR ---
PT VSS, NSR ON TELE, A&OX4, PT IS LEGALLY BLIND BUT FULLY FUNCTIONING, STAND BY ASSIST, HEMATOMA ON RIGHT THIGH, HOURLY ROUNDING PERFORMED, POSSESSIONS AND CALL LIGHT WITHIN REACH. PT NPO AT MIDNIGHT, EGD TOMORROW AM.
[2019-04-10 19:45] VITALS: BP 121/57
[2019-04-11] VITALS: BP 147/72
[2019-04-11 04:00] VITALS: BP 143/58
[2019-04-11 05:06] LABS: ABSOLUTE EOSINOPHILS 0.2 thou/uL (0.0-0.7); ABSOLUTE MONOCYTES 0.5 thou/uL (0.0-1.2); ABSOLUTE NEUTROPHILS 4.3 thou/uL (1.6-8.1); BASOPHILS 0.6 %; EOSINOPHILS 3.9 %; HEMATOCRIT 24.1 % (37.0-47.0); HEMOGLOBIN 7.8 gm/dL (12.0-15.0); LYMPHOCYTES 16.3 %; MCH 30.4 pg (26.0-34.0); MCHC 32.3 g/dL (28.0-37.0); MCV 94.3 fL (80.0-100.0); MONOCYTES 8.1 %; MPV 9.4 fl. (7.2-11.1); NUCLEATED RBCS 0 /100WBC; PLATELET COUNT* 202 thou/uL (150-400); POLYS 71.1 %; RBC 2.56 mil/uL (4.20-5.00); RDW-CV 17.7 % (10.5-14.5)
[2019-04-11 05:09] LABS: ALBUMIN 2.9 g/dL (3.4-5.0); CALCIUM 8.6 mg/dL (8.5-10.1); CREATININE 2.3 mg/dL (0.6-1.3); TOTAL BILIRUBIN 0.3 mg/dL (<0.1-1.0); TOTAL PROTEIN 5.9 g/dL (6.4-8.2)
[2019-04-11 08:00] VITALS: BP 171/83
[2019-04-11 12:00] VITALS: BP 150/68
[2019-04-11 16:49] VITALS: BP 164/77
[2019-04-11 20:00] VITALS: BP 142/69
[2019-04-12 00:39] VITALS: BP 126/63
[2019-04-12 03:57] VITALS: BP 111/57
[2019-04-12 04:29] LABS: ABSOLUTE EOSINOPHILS 0.2 thou/uL (0.0-0.7); ABSOLUTE LYMPHOCYTES 1.1 thou/uL (0.8-5.3); ABSOLUTE MONOCYTES 0.5 thou/uL (0.0-1.2); ABSOLUTE NEUTROPHILS 6.1 thou/uL (1.6-8.1); BASOPHILS 0.3 %; EOSINOPHILS 2.8 %; HEMATOCRIT 24.5 % (37.0-47.0); HEMOGLOBIN 8.3 gm/dL (12.0-15.0); LYMPHOCYTES 13.6 %; MCH 31.7 pg (26.0-34.0); MCHC 33.8 g/dL (28.0-37.0); MONOCYTES 6.6 %; MPV 8.8 fl. (7.2-11.1); NUCLEATED RBCS 0 /100WBC; PLATELET COUNT* 214 thou/uL (150-400); POLYS 76.7 %; RBC 2.61 mil/uL (4.20-5.00); RDW-CV 17.2 % (10.5-14.5)
[2019-04-12 04:37] LABS: CALCIUM 8.2 mg/dL (8.5-10.1); CREATININE 2.2 mg/dL (0.6-1.3); MAGNESIUM 2.1 mg/dL (1.8-2.4)
--- NOTE | 2019-04-12 06:43 | NUR ---
PT SLEPT ON AND OFF THIS SHIFT. ASSESSMENT DOCUMENTED. MEDS GIVEN PER E-MAR. IV PATENT. SCHEDULED PAIN MEDS GIVEN PER E-MAR WITH RELIEF. FALL PRECAUTIONS IN PLACE. WILL CONTINUE WITH PLAN OF CARE.
[2019-04-12 08:00] VITALS: BP 149/72
[2019-04-12 12:37] LABS: BE -3.9 mmol/L (-2 to +3); PCO2 34.9 mmHg (35.0-45.0); pH 7.389 (7.340-7.450)
[2019-04-12 12:42] VITALS: BP 153/69
--- NOTE | 2019-04-12 12:58 | NUR ---
Spoke with Dr rose marie mancini tomorrow
[2019-04-12 17:05] VITALS: BP 169/73
[2019-04-12 20:15] VITALS: BP 149/67
[2019-04-13] VITALS (7 sets, daily range): BP systolic 133–160; BP diastolic 53–76
--- NOTE | 2019-04-13 05:37 | NUR ---
PT SLEPT MOST OF SHIFT. ASSESSMENT DOCUMENTED. MEDS GIVEN PER E-MAR. IV PATENT. SCHEDULED PAIN MEDS GIVEN PER E-MAR WITH RELIEF. WILL CONTINUE WITH PLAN OF CARE.
--- NOTE | 2019-04-13 12:08 | NUR ---
Spoke with , anticipate dc to home tomorrow with HH.
--- NOTE | 2019-04-13 20:27 | NUR ---
RECEIVED REPORT FROM CHRISTINE SILVA. ASSUMED CARE OF PT AROUND 0730. PT A&O X4. VSS. O2 SAT >90% ON 2L PER NC, ABLE TO TITRATE OFF TO RA THIS SHIFT. ORDER ENTRY TECHNICIAN IN PLACE TRACING SB WITH 1ST DEGREE THIS AM, THEN PT CHANGED TO M/S STATUS. MEDS PER EMAR. IRON INFUSION TODAY, ANOTHER TOMORROW AND THEN HOME WITH . FAMILY VISITED THIS AFTERNOON. PT DENIED PAIN THIS SHIFT. APPETITE GOOD. VOIDING WELL, BM THIS EVENING. PT CURRENTLY RESTING IN BED. CALL LIGHT IS WITHIN REACH. HOURLY ROUNDING PERFORMED. FALL PRECAUTIONS IN PLACE.
[2019-04-14 04:00] VITALS: BP 140/54
[2019-04-14 08:00] VITALS: BP 139/65
--- NOTE | 2019-04-14 08:19 | NUR ---
ASSUMED PATIENT CARE AT 1900. ASSESSMENT COMPLETED CHARTED. PATIENT IS MED-SURG. HOURLY ROUNDING IN PLACE FOR PATIENT SAFETY. CLWR.
--- NOTE | 2019-04-14 08:28 | NUR ---
I HAVE REVIEWED THE DOCUMENTATION OF ORTEGA SILVA, I CONCUR WITH HIS CHARTING.
[2019-04-14] MEDS ORDERED: LEVAQUIN 500 M500 M3 PO (11:05)
--- NOTE | 2019-04-14 12:09 | NUR ---
Pt discharging to home today, declined HH, dtr in room and in agreement. Pt's outpt iron infusion scheduled for Tuesday 04/17 @1pm. Updated Pt and dtr in room
[2019-04-14 13:09] VITALS: BP 139/65
== END 2019-04-14 14:15 | disposition home or self-care (01) | DRG 392 ==
LOC: M.ERS 20:03 → M.TBA-ER 21:26 → M.2W 21:26
PROVIDERS: Emergency Medicine; Family Medicine; Internal Medicine; Internal Medicine Gastroenterology; ADMIT Internal Medicine
PROC: 0DJ08ZZ Inspection of Upper Intestinal Tract, Via Natural or Artificial Opening Endoscopic (ICD-10-PCS; principal; 2019-04-11)
DX: K22.4 Dyskinesia of esophagus (principal); N39.0 Urinary tract infection, site not specified; I13.0 Hypertensive heart and chronic kidney disease with heart failure and stage 1 through stage 4 chronic kidney disease, or unspecified chronic kidney disease; N18.4 Chronic kidney disease, stage 4 (severe); I50.32 Chronic diastolic (congestive) heart failure; E44.1 Mild protein-calorie malnutrition; I25.10 Atherosclerotic heart disease of native coronary artery without angina pectoris; K21.9 Gastro-esophageal reflux disease without esophagitis; E78.5 Hyperlipidemia, unspecified; D64.9 Anemia, unspecified; E66.9 Obesity, unspecified; M19.90 Unspecified osteoarthritis, unspecified site; K27.9 Peptic ulcer, site unspecified, unspecified as acute or chronic, without hemorrhage or perforation; E11.22 Type 2 diabetes mellitus with diabetic chronic kidney disease; K44.9 Diaphragmatic hernia without obstruction or gangrene; I25.2 Old myocardial infarction; Z95.1 Presence of aortocoronary bypass graft; Z90.710 Acquired absence of both cervix and uterus; Z90.49 Acquired absence of other specified parts of digestive tract; Z88.0 Allergy status to penicillin; Z88.8 Allergy status to other drugs, medicaments and biological substances; Z91.041 Radiographic dye allergy status; Z82.49 Family history of ischemic heart disease and other diseases of the circulatory system; Z68.34 Body mass index [BMI] 34.0-34.9, adult; Z95.5 Presence of coronary angioplasty implant and graft

== ENCOUNTER → 2019-04-17 | Outpatient (CLI) | payer OTHER ==
[~2019-04-17] MED LIST changes: +APPLE CIDER VI500 MG PO; +B-125000 MC1 PO; +DICYCLOMINE HCL20 MG PO; +ISOSORBIDE MON120 MG PO; +LEVAQUIN 500 M500 M3 PO; +RANEXA1000 MG PO; +RANOLAZINE ER1000 MG PO
[2019-04-17 13:30] VITALS: BP 162/76
[2019-04-17 14:58] VITALS: BP 156/72
== END ==
LOC: M.INFUS 01:10
DX: D64.9 Anemia, unspecified (principal)

== ENCOUNTER 2020-01-25 18:51 | Inpatient (IN) | payer OTHER ==
[~2020-01-25] VITALS: Ht 162.6 cm; Wt 84.5 kg
[~2020-01-25 18:51] MED LIST changes: +DICYCLOMINE HCL20 MG IM; -DICYCLOMINE HCL20 MG PO
[2020-01-25 21:30] VITALS: BP 144/69
[2020-01-25 23:05] LABS: CALCIUM 9.2 mg/dL (8.5-10.1); CREATININE 5.4 mg/dL (0.6-1.3)
[2020-01-25 23:07] LABS: POTASSIUM 2.7 mmol/L (3.5-5.1)
[2020-01-26] MEDS ORDERED: BENTYL10 MG/1 ML IM (01:15)
[2020-01-26] MEDS ORDERED: FEOSOL325 M1 PO (01:16)
[2020-01-26] MEDS ORDERED: FISH OIL 1,001000 M3 PO (01:18)
[2020-01-26] MEDS ORDERED: CALTRATE 600+D1 EAC1 PO (01:29)
[2020-01-26 01:54] LABS: URINE BILIRUBIN NEGATIVE (Negative); URINE BLOOD NEGATIVE (Negative); URINE CLARITY CLEAR; URINE COLOR YELLOW; URINE GLUCOSE-RANDOM NEGATIVE (Negative); URINE KETONES NEGATIVE (Negative); URINE LEUKOCYTES-REFLEX NEGATIVE (Negative); URINE NITRITE-REFLEX NEGATIVE (Negative); URINE PROTEIN NEGATIVE (Negative); URINE UROBILINOGEN 0.2 E.U./dl (0.2-1.0)
[2020-01-26 04:00] VITALS: BP 101/64
[2020-01-26 05:35] LABS: HEMATOCRIT 23.5 % (37.0-47.0); HEMOGLOBIN 8.2 gm/dL (12.0-15.0); MCH 32.9 pg (26.0-34.0); MCV 93.9 fL (80.0-100.0); MPV 9.7 fl. (7.2-11.1); RBC 2.51 mil/uL (4.20-5.00); RDW-CV 15.5 % (10.5-14.5); WBC 7.1 thou/uL (4.0-11.0)
[2020-01-26 06:01] LABS: ALBUMIN 2.9 g/dL (3.4-5.0); CALCIUM 8.8 mg/dL (8.5-10.1); CREATININE 5.4 mg/dL (0.6-1.3); MAGNESIUM 1.7 mg/dL (1.8-2.4); POTASSIUM 3.2 mmol/L (3.5-5.1); TOTAL BILIRUBIN 0.3 mg/dL (<0.1-1.0); TOTAL PROTEIN 5.9 g/dL (6.4-8.2)
[2020-01-26 08:07] VITALS: BP 124/63
[2020-01-26 12:00] VITALS: BP 120/60
[2020-01-26 20:00] VITALS: BP 126/58
[2020-01-27] VITALS: BP 137/66
[2020-01-27 04:00] VITALS: BP 135/63
[2020-01-27 12:18] VITALS: BP 121/52
[2020-01-27 15:52] LABS: ALBUMIN 2.9 g/dL (3.4-5.0); CALCIUM 8.5 mg/dL (8.5-10.1); CREATININE 4.6 mg/dL (0.6-1.3); MAGNESIUM 1.7 mg/dL (1.8-2.4); POTASSIUM 3.5 mmol/L (3.5-5.1); TOTAL BILIRUBIN 0.2 mg/dL (<0.1-1.0); TOTAL PROTEIN 5.8 g/dL (6.4-8.2)
[2020-01-27 16:00] VITALS: BP 123/57
[2020-01-27 18:05] LABS: URINE BILIRUBIN NEGATIVE (Negative); URINE BLOOD TRACE (Negative); URINE CLARITY CLEAR; URINE COLOR YELLOW; URINE GLUCOSE-RANDOM NEGATIVE (Negative); URINE KETONES NEGATIVE (Negative); URINE LEUKOCYTES 2+ (Negative); URINE NITRITE NEGATIVE (Negative); URINE PROTEIN NEGATIVE (Negative); URINE UROBILINOGEN 0.2 E.U./dl (0.2-1.0)
[2020-01-27 18:17] LABS: SQUAMOUS 0-3 Few /LPF (0-3); URINE WBC >25 Many /HPF (0-5); WBC CLUMPS Moderate (None Seen)
[2020-01-27 18:18] LABS: BACTERIA 1-9 Few /HPF (None Seen); CASTS None Seen /LPF (None Seen); CRYSTALS None Seen /LPF (None Seen); MUCUS None Seen strn/LPF (None Seen); URINE RBC None Seen /HPF (0-2)
[2020-01-27 20:00] VITALS: BP 132/60
[2020-01-28 00:24] VITALS: BP 116/53
[2020-01-28 04:15] VITALS: BP 129/56
[2020-01-28 05:00] LABS: ALBUMIN 2.6 g/dL (3.4-5.0); CALCIUM 8.2 mg/dL (8.5-10.1); CREATININE 4.6 mg/dL (0.6-1.3); TOTAL BILIRUBIN 0.2 mg/dL (<0.1-1.0); TOTAL PROTEIN 5.3 g/dL (6.4-8.2)
[2020-01-28 08:00] VITALS: BP 136/59
[2020-01-28 12:00] VITALS: BP 109/44
[2020-01-28 16:10] VITALS: BP 103/44
[2020-01-28 19:30] VITALS: BP 120/66
[2020-01-29] VITALS (7 sets, daily range): BP systolic 108–128; BP diastolic 40–67
[2020-01-29 05:50] LABS: ALBUMIN 2.3 g/dL (3.4-5.0); CALCIUM 7.1 mg/dL (8.5-10.1); CREATININE 4.1 mg/dL (0.6-1.3); POTASSIUM 4.1 mmol/L (3.5-5.1); TOTAL BILIRUBIN 0.2 mg/dL (<0.1-1.0); TOTAL PROTEIN 4.7 g/dL (6.4-8.2)
[2020-01-30 04:00] VITALS: BP 135/70
[2020-01-30 04:52] LABS: ABSOLUTE EOSINOPHILS 0.4 thou/uL (0.0-0.7); ABSOLUTE LYMPHOCYTES 0.9 thou/uL (0.8-5.3); ABSOLUTE MONOCYTES 0.5 thou/uL (0.0-1.2); ABSOLUTE NEUTROPHILS 8.6 thou/uL (1.6-8.1); BASOPHILS 0.3 %; EOSINOPHILS 3.5 %; HEMATOCRIT 21.9 % (37.0-47.0); HEMOGLOBIN 7.4 gm/dL (12.0-15.0); LYMPHOCYTES 8.7 %; MCH 33.1 pg (26.0-34.0); MCHC 33.6 g/dL (28.0-37.0); MCV 98.5 fL (80.0-100.0); MONOCYTES 5.2 %; MPV 9.8 fl. (7.2-11.1); NUCLEATED RBCS 0 /100WBC; PLATELET COUNT* 153 thou/uL (150-400); POLYS 82.3 %; RBC 2.23 mil/uL (4.20-5.00); RDW-CV 17.1 % (10.5-14.5); WBC 10.5 thou/uL (4.0-11.0)
[2020-01-30 05:24] LABS: ALBUMIN 2.8 g/dL (3.4-5.0); CALCIUM 8.6 mg/dL (8.5-10.1); CREATININE 4.7 mg/dL (0.6-1.3); TOTAL BILIRUBIN 0.3 mg/dL (<0.1-1.0); TOTAL PROTEIN 5.8 g/dL (6.4-8.2)
[2020-01-30 05:36] LABS: POTASSIUM 5.8 mmol/L (3.5-5.1)
[2020-01-30 06:11] LABS: ALBUMIN 2.8 g/dL (3.4-5.0); CALCIUM 8.6 mg/dL (8.5-10.1); CREATININE 4.6 mg/dL (0.6-1.3); PHOSPHORUS* 2.1 mg/dL (2.5-4.9); POTASSIUM 5.9 mmol/L (3.5-5.1)
[2020-01-30 07:30] VITALS: BP 129/81
[2020-01-30 11:57] VITALS: BP 102/73
[2020-01-30 16:09] VITALS: BP 140/66
[2020-01-30 20:49] VITALS: BP 149/77
[2020-01-30 23:37] VITALS: BP 156/88
[2020-01-31 04:08] VITALS: BP 150/73
[2020-01-31 04:43] LABS: CALCIUM 8.9 mg/dL (8.5-10.1); CREATININE 4.5 mg/dL (0.6-1.3); POTASSIUM 5.8 mmol/L (3.5-5.1)
[2020-01-31 04:46] LABS: ABSOLUTE EOSINOPHILS 0.1 thou/uL (0.0-0.7); ABSOLUTE LYMPHOCYTES 0.9 thou/uL (0.8-5.3); ABSOLUTE MONOCYTES 0.6 thou/uL (0.0-1.2); ABSOLUTE NEUTROPHILS 9.4 thou/uL (1.6-8.1); BASOPHILS 0.4 %; EOSINOPHILS 1.3 %; HEMATOCRIT 22.4 % (37.0-47.0); HEMOGLOBIN 7.5 gm/dL (12.0-15.0); LYMPHOCYTES 7.7 %; MCH 32.9 pg (26.0-34.0); MCHC 33.6 g/dL (28.0-37.0); MONOCYTES 5.7 %; MPV 10.1 fl. (7.2-11.1); NUCLEATED RBCS 0 /100WBC; PLATELET COUNT* 167 thou/uL (150-400); POLYS 84.9 %; RBC 2.28 mil/uL (4.20-5.00); RDW-CV 17.3 % (10.5-14.5); WBC 11.1 thou/uL (4.0-11.0)
[2020-01-31 08:00] VITALS: BP 145/67
[2020-01-31 12:50] VITALS: BP 144/67
[2020-01-31 16:15] VITALS: BP 137/60
[2020-01-31 20:34] VITALS: BP 154/79
[2020-02-01 04:00] VITALS: BP 117/56
[2020-02-01 05:31] LABS: HEMATOCRIT 20.3 % (37.0-47.0); MCH 33.4 pg (26.0-34.0); MCHC 34.2 g/dL (28.0-37.0); MCV 97.8 fL (80.0-100.0); MPV 10.3 fl. (7.2-11.1); NUCLEATED RBCS 0 /100WBC; PLATELET COUNT* 158 thou/uL (150-400); RBC 2.08 mil/uL (4.20-5.00); RDW-CV 17.4 % (10.5-14.5); WBC 8.9 thou/uL (4.0-11.0)
[2020-02-01 05:35] LABS: HEMOGLOBIN 6.9 gm/dL (12.0-15.0)
[2020-02-01 05:41] LABS: CALCIUM 9.1 mg/dL (8.5-10.1); CREATININE 4.5 mg/dL (0.6-1.3); MAGNESIUM 2.5 mg/dL (1.8-2.4); PHOSPHORUS* 4.2 mg/dL (2.5-4.9); POTASSIUM 4.7 mmol/L (3.5-5.1)
[2020-02-01 06:39] LABS: ABSOLUTE BASOPHILS 0.1 thou/uL (0.0-0.2); ABSOLUTE LYMPHOCYTES 0.5 thou/uL (0.8-5.3); ABSOLUTE MONOCYTES 0.4 thou/uL (0.0-1.2); ABSOLUTE NEUTROPHILS 7.8 thou/uL (1.6-8.1)
[2020-02-01 06:40] LABS: ANISOCYTOSIS 2+; PLATELET ESTIMATE ADEQUATE
[2020-02-01 06:41] LABS: MICROCYTES 2+
[2020-02-01 08:25] VITALS: BP 137/79
[2020-02-01 09:29] LABS: % SATURATION 16 % (20-39); IRON 41 ug/dL (50-175)
[2020-02-01 10:34] VITALS: BP 132/54; BP 153/79; BP 155/72; BP 157/75; BP 159/78; BP 174/83
[2020-02-01 16:42] LABS: HEMATOCRIT 24.1 % (37.0-47.0); HEMOGLOBIN 8.2 gm/dL (12.0-15.0)
[2020-02-01 20:56] VITALS: BP 122/65
[2020-02-02] VITALS: BP 152/77
[2020-02-02 03:45] VITALS: BP 162/77
[2020-02-02 04:57] LABS: ABSOLUTE EOSINOPHILS 0.3 thou/uL (0.0-0.7); ABSOLUTE LYMPHOCYTES 0.8 thou/uL (0.8-5.3); ABSOLUTE MONOCYTES 0.6 thou/uL (0.0-1.2); ABSOLUTE NEUTROPHILS 6.3 thou/uL (1.6-8.1); BASOPHILS 0.5 %; EOSINOPHILS 3.5 %; HEMATOCRIT 24.9 % (37.0-47.0); HEMOGLOBIN 8.4 gm/dL (12.0-15.0); LYMPHOCYTES 9.7 %; MCH 32.8 pg (26.0-34.0); MCHC 33.5 g/dL (28.0-37.0); MCV 97.8 fL (80.0-100.0); MONOCYTES 7.2 %; NUCLEATED RBCS 0 /100WBC; PLATELET COUNT* 154 thou/uL (150-400); POLYS 79.1 %; RBC 2.55 mil/uL (4.20-5.00); WBC 7.9 thou/uL (4.0-11.0)
[2020-02-02 05:26] LABS: CALCIUM 9.1 mg/dL (8.5-10.1); POTASSIUM 4.3 mmol/L (3.5-5.1)
[2020-02-02 08:00] VITALS: BP 125/92
[2020-02-02 09:59] VITALS: BP 162/77
[2020-02-02 12:00] VITALS: BP 139/73
[2020-02-02 20:36] VITALS: BP 121/80
[2020-02-02 22:06] LABS: IgA 64 mg/dL (64-422); IgG 576 mg/dL (586-1602)
[2020-02-02 23:06] LABS: IgM 19 mg/dL (26-217)
[2020-02-03] VITALS: BP 155/96
[2020-02-03 03:06] LABS: HEPATITIS B SURFACE AG Negative (Negative)
[2020-02-03 08:00] VITALS: BP 152/80
[2020-02-03 08:16] LABS: ABSOLUTE EOSINOPHILS 0.1 thou/uL (0.0-0.7); ABSOLUTE LYMPHOCYTES 0.7 thou/uL (0.8-5.3); ABSOLUTE MONOCYTES 0.5 thou/uL (0.0-1.2); ABSOLUTE NEUTROPHILS 5.2 thou/uL (1.6-8.1); BASOPHILS 0.4 %; EOSINOPHILS 2.2 %; HEMATOCRIT 23.5 % (37.0-47.0); HEMOGLOBIN 8.1 gm/dL (12.0-15.0); LYMPHOCYTES 10.6 %; MCH 33.5 pg (26.0-34.0); MCHC 34.6 g/dL (28.0-37.0); MCV 96.9 fL (80.0-100.0); MONOCYTES 7.7 %; MPV 9.6 fl. (7.2-11.1); NUCLEATED RBCS 0 /100WBC; PLATELET COUNT* 152 thou/uL (150-400); POLYS 79.1 %; RBC 2.42 mil/uL (4.20-5.00); RDW-CV 16.7 % (10.5-14.5); WBC 6.6 thou/uL (4.0-11.0)
[2020-02-03 08:26] LABS: CALCIUM 8.6 mg/dL (8.5-10.1); MAGNESIUM 2.3 mg/dL (1.8-2.4); POTASSIUM 4.3 mmol/L (3.5-5.1)
[2020-02-03 13:12] VITALS: BP 136/70
[2020-02-03 18:02] VITALS: BP 112/55
[2020-02-03 21:00] VITALS: BP 129/107
[2020-02-04] VITALS: BP 127/78
[2020-02-04 02:05] LABS: LAMBDA FREE LIGHT CHAINS 31.8 mg/L (5.7-26.3)
[2020-02-04 07:55] VITALS: BP 139/77
[2020-02-04 08:58] LABS: ABSOLUTE EOSINOPHILS 0.1 thou/uL (0.0-0.7); ABSOLUTE LYMPHOCYTES 0.6 thou/uL (0.8-5.3); ABSOLUTE MONOCYTES 0.6 thou/uL (0.0-1.2); ABSOLUTE NEUTROPHILS 5.7 thou/uL (1.6-8.1); BASOPHILS 0.4 %; EOSINOPHILS 1.8 %; HEMATOCRIT 23.3 % (37.0-47.0); HEMOGLOBIN 7.9 gm/dL (12.0-15.0); LYMPHOCYTES 8.9 %; MCH 33.2 pg (26.0-34.0); MCHC 34.1 g/dL (28.0-37.0); MCV 97.3 fL (80.0-100.0); MONOCYTES 8.1 %; MPV 9.7 fl. (7.2-11.1); NUCLEATED RBCS 0 /100WBC; PLATELET COUNT* 149 thou/uL (150-400); POLYS 80.8 %; RBC 2.39 mil/uL (4.20-5.00); RDW-CV 16.4 % (10.5-14.5); WBC 7.1 thou/uL (4.0-11.0)
[2020-02-04 09:06] LABS: CALCIUM 8.7 mg/dL (8.5-10.1); CREATININE 3.3 mg/dL (0.6-1.3); POTASSIUM 3.7 mmol/L (3.5-5.1)
[2020-02-04 11:49] VITALS: BP 123/82
[2020-02-04 20:00] VITALS: BP 125/50
[2020-02-05] VITALS: BP 121/49
[2020-02-05 04:00] VITALS: BP 133/61
[2020-02-05 05:10] LABS: ABSOLUTE EOSINOPHILS 0.2 thou/uL (0.0-0.7); ABSOLUTE LYMPHOCYTES 0.8 thou/uL (0.8-5.3); ABSOLUTE MONOCYTES 0.7 thou/uL (0.0-1.2); BASOPHILS 0.6 %; EOSINOPHILS 3.1 %; HEMATOCRIT 21.5 % (37.0-47.0); HEMOGLOBIN 7.3 gm/dL (12.0-15.0); LYMPHOCYTES 10.1 %; MCH 33.2 pg (26.0-34.0); MCHC 33.9 g/dL (28.0-37.0); MCV 97.7 fL (80.0-100.0); MONOCYTES 9.3 %; NUCLEATED RBCS 0 /100WBC; PLATELET COUNT* 146 thou/uL (150-400); POLYS 76.9 %; RDW-CV 16.5 % (10.5-14.5); WBC 7.8 thou/uL (4.0-11.0)
[2020-02-05 08:00] VITALS: BP 116/67
[2020-02-05 08:36] LABS: CALCIUM 8.4 mg/dL (8.5-10.1); POTASSIUM 3.6 mmol/L (3.5-5.1)
[2020-02-05 08:38] LABS: CREATININE 4.3 mg/dL (0.6-1.3)
[2020-02-05 11:06] LABS: ANA INTERPRETATION Negative (Negative)
[2020-02-05 14:36] LABS: SODIUM ND mmol/L (136-145)
[2020-02-05 14:37] LABS: POTASSIUM ND mmol/L (3.5-5.1)
[2020-02-05 14:38] LABS: CHLORIDE ND mmol/L (98-107)
[2020-02-05 14:39] LABS: ANION GAP ND mmol/L (7-16); BUN ND mg/dL (7-18); CO2 ND mmol/L (21-32)
[2020-02-05 14:40] LABS: CREATININE ND mg/dL (0.6-1.3); GLUCOSE ND mg/dL (70-99)
[2020-02-05 14:41] LABS: CALCIUM ND mg/dL (8.5-10.1)
--- NOTE | 2020-02-05 15:53 | CON ---
[address] [address] CONSULTATION Name: ARLETHSHAGGY MANCIA Room: [address] IN M.R.#: [id number] Admission: 01/25/20 Attend Phys: Mariano Montelongo Discharge: Date of : 43 Report #: [id number] THIS REPORT FOR: //name// cc: Mirza Tidwell MD, Daljeet MD ~ THIS REPORT FOR: //name// CC: Mirza Martinez DATE OF SERVICE: 02/05/2020 CARDIOLOGY CONSULTATION HISTORY OF PRESENT ILLNESS: The patient is a 74-year-old single white female who I was asked to see in the hospital today because of her history of coronary artery disease. The patient has an extensive past medical history. She had multivessel coronary artery bypass surgery at [facility] in 1992. She has had multiple stents since that time. Her last stent was apparently in last March. She has had only brief episodes of chest pain since that time. She has been followed by my partner, Dr. Miles. She is not very active at this time. She had polio as a child and uses a walker. She has had a history of progressive renal insufficiency. Because of elevated troponin, she was actually admitted to [facility] a week ago and had a temporary dialysis catheter placed. She is now undergoing hemodialysis. Before admission, she had been short of breath and had edema. She notes occasional skipped heartbeat, but no prolonged palpitations or syncope. She denied any fever or cough. PAST MEDICAL AND SURGICAL HISTORY: She has had multiple surgical procedures including carpal tunnel, foot surgery, hernia repair, hysterectomy, knee replacement, tonsillectomy. She has a history of hypertension, diabetes, hyperlipidemia. MEDICATIONS: Include nebulized inhalers, allopurinol for gout, Plavix, Flexeril, Bentyl, Zetia, fenofibrate, iron supplements, Lasix, glipizide, hydralazine, Imdur, Synthroid. She takes Zaroxolyn for edema, metoprolol, omeprazole, potassium, Ranexa. ALLERGIES: SHE HAS PREVIOUS INTOLERANCE TO PENICILLIN. FAMILY HISTORY: Negative for heart disease. SOCIAL HISTORY: She is , lives by herself in [place], [place]. Quit smoking in 1992. Rarely drinks alcohol. REVIEW OF SYSTEMS: She has had no history of stroke. [place] [address] CONSULTATION Name: SHAGGY REINOSO Room: [address]#: [id number] Admission: 01/25/20 Attend Phys: Mariano Montelongo Discharge: Date of : 43 Report #: [id number] history of liver disease. She has chronic anemia. Previous GI workup showed no obvious bleeding. She received iron infusions in the past. No history of cancer, psychiatric illness, or chronic skin condition. PHYSICAL EXAMINATION: GENERAL: Revealed an elderly female lying in bed. She appeared in no distress. VITAL SIGNS: Blood pressure 120/60, pulse 68. She is afebrile. HEENT: She was anicteric. Conjunctivae are pale. Mucous membranes were dry. NECK: Veins not distended. No carotid bruits. CHEST: Clear to auscultation. CARDIAC: Regular rate and rhythm. ABDOMEN: Soft. EXTREMITIES: Had no edema. Dorsalis pedis pulse 1+ bilaterally. SKIN: Cool and dry. NEUROLOGIC: Nonfocal. LABORATORY AND DIAGNOSTIC DATA: Her ECG showed a sinus rhythm. There were nonspecific ST-segment changes noted, occasional PVC. Her workup showed she had an echocardiogram last March that showed ejection fraction 60%, left ventricular hypertrophy, left atrial enlargement, aortic sclerosis. Her lab work on admission showed she had a portable chest x-ray done last week that showed cardiomegaly, no pulmonary edema. Her lab work showed sodium 137, potassium 3.6, creatinine 4.3. Liver function studies are normal. Troponin 0.06. Her white blood cell count 7.8, hemoglobin 7.3. IMPRESSION AND RECOMMENDATIONS: 1. Coronary artery disease. Previous coronary artery bypass surgery, multiple stents. I would continue Plavix. Because of anemia, I would discontinue aspirin. 2. Hypertension. The patient has been on hydralazine and beta-melissa. 3. Hyperlipidemia. The patient is on Zetia for high cholesterol and fenofibrate for high triglycerides. 4. Diabetes. The patient is on oral medications. 5. End-stage renal disease. The patient is now being dialyzed. 6. Asthma. The patient uses bronchodilators. <ELECTRONICALLY SIGNED> By: Jacobo Tom MD, FACC 02/05/20 1553 1031 1053Dhilda Tom MD, FACC /nt
[2020-02-05 16:57] VITALS: BP 157/62
[2020-02-05 19:07] LABS: GLOBULIN TOTAL 2.8 g/dL (2.2-3.9); M-SPIKE Not Observed g/dL (Not Observed)
[2020-02-05 20:07] VITALS: BP 157/62
[2020-02-06 00:39] VITALS: BP 121/55
[2020-02-06 04:59] LABS: ABSOLUTE EOSINOPHILS 0.3 thou/uL (0.0-0.7); ABSOLUTE LYMPHOCYTES 0.8 thou/uL (0.8-5.3); ABSOLUTE MONOCYTES 0.7 thou/uL (0.0-1.2); ABSOLUTE NEUTROPHILS 5.6 thou/uL (1.6-8.1); BASOPHILS 0.5 %; EOSINOPHILS 3.4 %; HEMATOCRIT 23.2 % (37.0-47.0); HEMOGLOBIN 8.1 gm/dL (12.0-15.0); LYMPHOCYTES 10.6 %; MCV 97.2 fL (80.0-100.0); MONOCYTES 9.9 %; MPV 9.6 fl. (7.2-11.1); NUCLEATED RBCS 0 /100WBC; PLATELET COUNT* 138 thou/uL (150-400); POLYS 75.6 %; RBC 2.39 mil/uL (4.20-5.00); RDW-CV 16.9 % (10.5-14.5); WBC 7.5 thou/uL (4.0-11.0)
[2020-02-06 05:26] LABS: CALCIUM 8.4 mg/dL (8.5-10.1); POTASSIUM 3.2 mmol/L (3.5-5.1)
[2020-02-06 08:00] VITALS: BP 147/64
[2020-02-06 17:32] VITALS: BP 116/54
[2020-02-06 21:00] VITALS: BP 155/68
[2020-02-07] VITALS: BP 155/87
[2020-02-07 05:07] LABS: ABSOLUTE EOSINOPHILS 0.3 thou/uL (0.0-0.7); ABSOLUTE LYMPHOCYTES 0.7 thou/uL (0.8-5.3); ABSOLUTE NEUTROPHILS 7.2 thou/uL (1.6-8.1); BASOPHILS 0.5 %; EOSINOPHILS 2.9 %; HEMATOCRIT 24.1 % (37.0-47.0); HEMOGLOBIN 8.1 gm/dL (12.0-15.0); MCH 33.1 pg (26.0-34.0); MCHC 33.7 g/dL (28.0-37.0); MCV 98.2 fL (80.0-100.0); MONOCYTES 10.7 %; NUCLEATED RBCS 0 /100WBC; PLATELET COUNT* 154 thou/uL (150-400); POLYS 77.9 %; RBC 2.46 mil/uL (4.20-5.00); RDW-CV 17.5 % (10.5-14.5); WBC 9.2 thou/uL (4.0-11.0)
[2020-02-07 05:27] LABS: CALCIUM 8.6 mg/dL (8.5-10.1); CREATININE 3.7 mg/dL (0.6-1.3); POTASSIUM 3.4 mmol/L (3.5-5.1)
[2020-02-07 08:00] VITALS: BP 146/64
[2020-02-07] MEDS ORDERED: COLACE 100 MG100 MG PO (08:01)
[2020-02-07] MEDS ORDERED: GLUCOTROL5 MG PO (08:03)
[2020-02-07] MEDS ORDERED: ZYPREXA2.5 MG PO (10:32)
[2020-02-07 12:00] VITALS: BP 122/52
[2020-02-07 18:32] VITALS: BP 122/52
[2020-02-07 19:28] VITALS: BP 122/49
== END 2020-02-07 16:00 | disposition home health service (06) | DRG 673 ==
LOC: M.2W 18:51
PROVIDERS: Internal Medicine; Internal Medicine Nephrology; ADMIT Internal Medicine; ATTEND Internal Medicine
PROC: 30233N1 Transfusion of Nonautologous Red Blood Cells into Peripheral Vein, Percutaneous Approach (ICD-10-PCS; principal; 2020-02-01)
PROC: 02HV33Z Insertion of Infusion Device into Superior Vena Cava, Percutaneous Approach (ICD-10-PCS; 2020-02-02)
PROC: 0JH63XZ Insertion of Tunneled Vascular Access Device into Chest Subcutaneous Tissue and Fascia, Percutaneous Approach (ICD-10-PCS; 2020-02-02)
PROC: 5A1D70Z Performance of Urinary Filtration, Intermittent, Less than 6 Hours Per Day (ICD-10-PCS; 2020-02-02)
PROC: B548ZZA Ultrasonography of Superior Vena Cava, Guidance (ICD-10-PCS; 2020-02-02)
PROC: 5A1D70Z Performance of Urinary Filtration, Intermittent, Less than 6 Hours Per Day (ICD-10-PCS; 2020-02-03)
PROC: 5A1D70Z Performance of Urinary Filtration, Intermittent, Less than 6 Hours Per Day (ICD-10-PCS; 2020-02-05)
DX: N17.0 Acute kidney failure with tubular necrosis (principal); G93.41 Metabolic encephalopathy; E44.0 Moderate protein-calorie malnutrition; I13.0 Hypertensive heart and chronic kidney disease with heart failure and stage 1 through stage 4 chronic kidney disease, or unspecified chronic kidney disease; D64.9 Anemia, unspecified; N18.6 End stage renal disease; I25.10 Atherosclerotic heart disease of native coronary artery without angina pectoris; R33.9 Retention of urine, unspecified; I50.9 Heart failure, unspecified; J44.9 Chronic obstructive pulmonary disease, unspecified; E03.9 Hypothyroidism, unspecified; E11.22 Type 2 diabetes mellitus with diabetic chronic kidney disease; E88.09 Other disorders of plasma-protein metabolism, not elsewhere classified; E66.9 Obesity, unspecified; E87.6 Hypokalemia; E78.5 Hyperlipidemia, unspecified; Z20.828 Contact with and (suspected) exposure to other viral communicable diseases; Z68.32 Body mass index [BMI] 32.0-32.9, adult; Z88.0 Allergy status to penicillin; Z88.7 Allergy status to serum and vaccine; Z88.8 Allergy status to other drugs, medicaments and biological substances; Z91.041 Radiographic dye allergy status; I25.2 Old myocardial infarction; Z95.1 Presence of aortocoronary bypass graft; Z90.49 Acquired absence of other specified parts of digestive tract; Z90.710 Acquired absence of both cervix and uterus; Z98.42 Cataract extraction status, left eye; Z98.41 Cataract extraction status, right eye; Z95.5 Presence of coronary angioplasty implant and graft; Z87.891 Personal history of nicotine dependence; Z79.84 Long term (current) use of oral hypoglycemic drugs; Z79.899 Other long term (current) drug therapy

== ENCOUNTER 2020-09-11 07:31 | Observation (INO) | payer OTHER ==
[~2020-09-11] VITALS: Ht 160 cm; Wt 79.4 kg
[2020-09-11] VITALS (11 sets, daily range): BP systolic 134–183; BP diastolic 59–76
[~2020-09-11 07:31] MED LIST changes: +BENTYL10 MG/1 ML IM; +CALTRATE 600+D1 EAC1 PO; +COLACE 100 MG100 MG PO; +FEOSOL325 M1 PO; +FISH OIL 1,001000 M3 PO; +FISH OIL DR 1,1 EAC1 PO; +LIPITOR 10 MG10 M1 PO; +VITAMIN D325 MC5 PO; +ZETIA10 MG PO; +ZYPREXA2.5 MG PO
[2020-09-11 08:12] LABS: HEMATOCRIT 33.1 % (37.0-47.0); HEMOGLOBIN 10.9 gm/dL (12.0-15.0); MCHC 32.9 g/dL (28.0-37.0); MCV 100.2 fL (80.0-100.0); MPV 8.6 fl. (7.2-11.1); RBC 3.3 mil/uL (4.20-5.00); RDW-CV 15.5 % (10.5-14.5); WBC 9.7 thou/uL (4.0-11.0)
[2020-09-11 08:20] LABS: APTT 25.2 Seconds (25.0-31.3); INR 0.9
[2020-09-11 08:21] LABS: ALBUMIN 3.3 g/dL (3.4-5.0); CALCIUM 9.6 mg/dL (8.5-10.1); POTASSIUM 4.3 mmol/L (3.5-5.1); TOTAL BILIRUBIN 0.3 mg/dL (<0.1-1.0)
--- NOTE | 2020-09-11 14:04 | CARD ---
[address] [address] CARDIAC CATH REPORT Name: SHAGGY REINOSO Room: [address] M.RElizabeth#: [id number] Admission: 09/11/20 Attend Phys: Andres Pappas MD, Discharge: Date of : 43 Report #: [id number] THIS REPORT FOR: cc: MORGAN ZUÑIGA MD Physician not on staff Andres Pappas MD [facility] ~ APPROVED REPORT Study performed: 09/11/2020 08:43:01 Patient Details Patient Status: Out-Patient Room #: The patient is a 74 year-old female Event Personnel Gerard Boykin EP SPECIALIST Monitor, Maru Noguera RTR Mian Gupta John Child Support Case Officer, Candace Junior RN regulator operator Performed Art Access - R femoral artery* Left Heart Cath Coronaries, Bypass Grafts [id number] LHCCORCABG Hemostasis w/ Mynx Indication Unstable angina Risk Factors Hypercholesterolemia, HypertensionRenal Failure Previous Procedures/Diagnoses Previous CABG Procedure Narrative The patient was brought electively to the Cardiac Catheterization Laboratory and was prepped and draped in a sterile manner. The right femoral was infiltrated with 2% Lidocaine subcutaneous anesthesia. IV conscious sedation was used throughout procedure with appropriate monitoring and was performed in the presence of a registered nurse who was an independent trained observer other than the physician performing the procedure. A [place] 6 FR sheath was inserted into the right femoral artery. Coronary angiography was performed using coronary diagnostic catheters. The right coronary system was accessed and visualized with a JR4 catheter. The left coronary system was accessed and visualized with a JL4 catheter. The left ventricle was accessed and visualized [place] [address] CARDIAC CATH REPORT Name: DEIDRE REINOSOYCE GAVINO Room: [address] Jos Cosme#: [id number] Admission: 09/11/20 Attend Phys: Andres Pappas MD, Discharge: Date of : 43 Report #: [id number] ventricular/Aortic Valve gradient assessed via catheter pullback. Left ventriculogram was performed in HALL projection. Pre-demployment femoral angiogram was performed . Closure device was deployed with a 6 Fr MynxGrip 6/7F. The patient tolerated the procedure well and there were no complications associated with the procedure. There was no hematoma. Intraoperative Conscious Sedation Sedation start time: 0955 Case end Time: 1020 Fentanyl 25 mcg Versed 1 mg Fluoro Time: 4.6 minutes Dose: DAP 49121 cGycm2 680 mGy Contrast Type and Amount: Visipaque 120 ml [place] Artery Percent Stenosis 1. There is a widely patent JOSUE graft to the LAD with 50% distal LAD narrowing with collaterals from the LAD to the distal right coronary artery 2. Additional previously constructed vein grafts are occluded Diagnostic Cath Left Main 0% narrowing LAD 100% proximal occlusion Circumflex 100% mid circumflex occlusion; there is a prominent first marginal branch with 30% proximal narrowing Right Coronary 100% proximal occlusion Left Ventriculography The left ventricle is normal in size with Mildly decreased contractility. The left ventricular ejection fraction is estimated to be 45%. Left ventricular wall motion abnormalities are present. There is 1+ mitral insufficiency. Inferobasilar akinesis is noted Hemodynamics The aortic pressure is 147/57 mmHg with a mean of 94 mmHg. The left ventricular pressure is 145/5 mmHg with a mean of mmHg. The left ventricular end diastolic pressure is 19 mmHg. Conclusion 1. Severe coronary artery disease characterized by the following: [place] [address] CARDIAC CATH REPORT Name: DEIDRE REINOSOSOY MANCIA Room: [address] Karen.#: [id number] Admission: 09/11/20 Attend Phys: Andres Pappas MD, Discharge: Date of : 43 Report #: [id number] A 100% proximal LAD occlusion B 100% mid circumflex occlusion with 30% narrowing in the proximal portion of the first marginal branch C 100% proximal right coronary artery occlusion 2. Graft study characterized by the following: A widely patent JOSUE graft to the LAD with 50% apical LAD narrowing and collaterals from the LAD to the distal right coronary artery B total occlusion of the previously constructed vein grafts 3. Modest elevation of left ventricular and diastolic pressure at rest 4. Mild decrease in global LV function, estimate ejection fraction being 45% with inferobasilar akinesis 5. Modest elevation of left ventricular end diastolic pressure at rest Recommendations Cardiac Risk Reduction Program Aggressive Medical Therapy Diagnostic Cath Approved by: Andres Pappas MD Date/Time: 09/11/2020 14:00:35 <ELECTRONICALLY SIGNED> By: Andres Pappas MD, [facility] 09/11/20 1404 1404 1404Andres Pappas MD, [facility] /INF
--- NOTE | 2020-09-11 14:28 | EKG ---
[place] [address] ELECTROCARDIOGRAM REPORT Name: SHAGGY REINOSO Room: [address] M.R.#: [id number] Admission: 09/11/20 Attend Phys: Amanda Wallace Discharge: Date of : 43 Date of Service: 09/11/20 0827 Report #: [id number] THIS REPORT FOR: //name// [facility] Test Date: 2020-09-11 Test Time: 08:27:06 Pat Name: SHAGGY REINOSO Department: Room: [facility] Gender: F Cloth Carrier: CORTNEY : 1945 Requested By: Andres Pappas Order Number: [id number] Amanda MD: Andres Pappas Measurements Intervals [place] Rate: 76 P: -7 [place]: 248 QRS: 60 QRSD: 123 T: -36 QT: 417 QTc: 469 Interpretive Statements Sinus rhythm Prolonged [place] interval Incomplete left bundle branch block Compared to ECG 04/08/2019 20:08:07 IVCD of the left type persists Electronically Signed On 09-11-2020 14:28:16 CDT by Andres Pappas [email or web address] <ELECTRONICALLY SIGNED> By: Andres Pappas MD, [facility] 09/11/20 1428 0827 0827 Andres Pappas MD, [facility] /EPI
--- NOTE | 2020-09-11 19:35 | NUR ---
RECEIVED REPORT FROM RICARDO OLIVEIRA. PT ARRIVED ON UNIT AROUND 1545. IV INTACT. HEART MONITOR ATTACHED AT SR. PT ABLE TO STAND UP. NO COMPLICATIONS. DRESSING TO RIGHT GROIN C/D/I. PT UP ADLIB. DIALYSIS THIS EVENING. PT TAKEN UP TO DIALYSIS. IN DIALYSIS CURRENTLY. ABLE TO DISCHARGE AFTER DIALYSIS IS DONE.
== END 2020-09-11 22:50 | disposition home or self-care (01) ==
LOC: M.CL 07:31 → M.TBA-CV 12:10 → M.2W 12:10
PROVIDERS: ADMIT Family Medicine; ATTEND Internal Medicine
DX: I25.110 Atherosclerotic heart disease of native coronary artery with unstable angina pectoris (principal); I12.9 Hypertensive chronic kidney disease with stage 1 through stage 4 chronic kidney disease, or unspecified chronic kidney disease; E11.22 Type 2 diabetes mellitus with diabetic chronic kidney disease; N18.6 End stage renal disease; J44.9 Chronic obstructive pulmonary disease, unspecified; E03.9 Hypothyroidism, unspecified; I25.10 Atherosclerotic heart disease of native coronary artery without angina pectoris; K27.9 Peptic ulcer, site unspecified, unspecified as acute or chronic, without hemorrhage or perforation; D50.9 Iron deficiency anemia, unspecified; R11.2 Nausea with vomiting, unspecified; I25.2 Old myocardial infarction; Z95.818 Presence of other cardiac implants and grafts; Z95.1 Presence of aortocoronary bypass graft; Z79.899 Other long term (current) drug therapy

== ENCOUNTER 2021-06-15 20:07 | Emergency (ER) | payer OTHER ==
[~2021-06-15] VITALS: Ht 160 cm; Wt 79.4 kg
[2021-06-15 21:08] LABS: HEMATOCRIT 25.8 % (37.0-47.0); HEMOGLOBIN 8.4 gm/dL (12.0-15.0); MCH 32.2 pg (26.0-34.0); MCHC 32.4 g/dL (28.0-37.0); MCV 99.3 fL (80.0-100.0); NUCLEATED RBCS 0 /100WBC; PLATELET COUNT* 140 thou/uL (150-400); RDW-CV 17.1 % (10.5-14.5); WBC 12.9 thou/uL (4.0-11.0)
[2021-06-15 21:18] LABS: CALCIUM 8.5 mg/dL (8.5-10.1); CREATININE 6.4 mg/dL (0.6-1.3); POTASSIUM 4.4 mmol/L (3.5-5.1)
[2021-06-15 21:19] LABS: APTT 23.1 Seconds (25.0-31.3); INR 1.1; PROTIME 11.5 Seconds (9.20-11.50)
[2021-06-15 21:21] LABS: ALBUMIN 3.2 g/dL (3.4-5.0); TOTAL BILIRUBIN 0.4 mg/dL (<0.1-1.0); TOTAL PROTEIN 6.5 g/dL (6.4-8.2)
[2021-06-15] MEDS ORDERED: DOXYCYCLINE 10100 MG PO (22:15)
[2021-06-15 22:19] VITALS: BP 166/63
[2021-06-15 22:45] LABS: ABSOLUTE EOSINOPHILS 0.5 thou/uL (0.0-0.7); ABSOLUTE LYMPHOCYTES 0.5 thou/uL (0.8-5.3); ABSOLUTE MONOCYTES 1.2 thou/uL (0.0-1.2); ABSOLUTE NEUTROPHILS 10.7 thou/uL (1.6-8.1); PLATELET ESTIMATE DECREASED
[2021-06-15 22:46] LABS: ANISOCYTOSIS 1+; POLYCHROMASIA 1+
== END 2021-06-15 22:25 | disposition home or self-care (01) ==
LOC: M.ERS 20:07
PROVIDERS: Student in an Organized Health Care Education/Training Program
DX: R04.0 Epistaxis (principal); I25.2 Old myocardial infarction; I25.10 Atherosclerotic heart disease of native coronary artery without angina pectoris; J44.9 Chronic obstructive pulmonary disease, unspecified; E03.9 Hypothyroidism, unspecified; I12.0 Hypertensive chronic kidney disease with stage 5 chronic kidney disease or end stage renal disease; E11.22 Type 2 diabetes mellitus with diabetic chronic kidney disease; N18.6 End stage renal disease; Z99.2 Dependence on renal dialysis; Z95.1 Presence of aortocoronary bypass graft; Z90.89 Acquired absence of other organs; Z98.890 Other specified postprocedural states; Z90.49 Acquired absence of other specified parts of digestive tract; Z90.710 Acquired absence of both cervix and uterus; Z79.82 Long term (current) use of aspirin; Z79.51 Long term (current) use of inhaled steroids; Z79.891 Long term (current) use of opiate analgesic; Z79.1 Long term (current) use of non-steroidal anti-inflammatories (NSAID); Z79.899 Other long term (current) drug therapy; Z91.041 Radiographic dye allergy status; Z88.0 Allergy status to penicillin; Z88.8 Allergy status to other drugs, medicaments and biological substances; Z88.7 Allergy status to serum and vaccine